=== PATIENT | female | born 1945 | race Caucasian/White ===

== ENCOUNTER 2018-04-09 12:15 | Outpatient (REF) | payer MEDICARE, OTHER, MEDICAID, SELFPAY ==
[2018-04-09 13:18] LABS: PROTEIN < 6.0 mg/dL
[2018-04-09 13:21] LABS: ALT 25 U/L (12-78); AST 14 U/L (15-37)
[2018-04-09 13:26] LABS: COMMENT (LAB VIEW ONLY) 21.86 mg/dL
== END 2018-04-09 12:35 ==
LOC: LBN 12:15
PROVIDERS: PCP Nurse Practitioner Family; Visit Provider Nurse Practitioner Family
DX: I10 Essential (primary) hypertension (principal)
CPT/HCPCS: 82043; 82565; 82570; 84156; 84450; 84460

== ENCOUNTER 2018-05-10 00:33 | Outpatient (CLI) | payer MEDICARE, OTHER, MEDICAID, SELFPAY ==
--- NOTE | 2018-05-10 12:45 | DI.MAMMO_ITS ---
SYMPTOM/DIAGNOSIS: SCREENING, Z00.00 MAMMOGRAM: 05/10 Mammograms were interpreted according to the usual protocol including computer analysis with CAD system, tomosynthesis and C view imaging. The breasts are heterogeneously dense. No dominant mass or clumped microcalcification is identified in either breast. The current examination is compared with previous examinations including March 2017 and there has been no gross interval change in appearance in comparison with the previous studies. CONCLUSION: No specific evidence of malignancy at this time. Routine screening examinations are suggested at yearly intervals due to the family history of breast carcinoma. Category 1, breast density Category C. MQSA ASSESSMENT OF FINDINGS: Negative. Category 1. Patient will receive a letter notifying them of these results. Bi-RADS category C. The breasts are heterogeneously dense, which may obscure small masses.
== END 2018-05-10 00:53 ==
PROVIDERS: PCP Nurse Practitioner Family; Visit Provider Nurse Practitioner Family
DX: Z12.31 Encounter for screening mammogram for malignant neoplasm of breast (principal); Z80.3 Family history of malignant neoplasm of breast
CPT/HCPCS: 77063; 77067

== ENCOUNTER 2018-10-18 08:56 | Outpatient (CLI) | payer MEDICARE, OTHER, SELFPAY ==
[2018-10-18 09:38] LABS: Abs Immature Grans 0.02 k/cumm (0.0-0.09); Absolute Basophil Count 0.04 k/cumm (0.0-0.2); Absolute Eosinophil Count 0.32 k/cumm (0.0-0.7); Absolute Lymphocyte Count 2.61 k/cumm (1.2-3.4); Absolute Monocyte Count 0.92 k/cumm (0.11-0.7); Absolute Neutrophil Count 5.27 k/cumm (1.2-6.7); Basophils % 0.4; Eosinophils % 3.5; HCT 43.8 % (36.0-46.0); HGB 14.3 g/dL (12.0-15.5); Immature Grans % 0.2; Lymphocytes % 28.4; Mean Corp. HGB Concentration 32.6 g/dL (32.0-36.0); Neutrophils % 57.5; Platelet Count 197 x1000/uL (130-400); RBC 4.76 m/cumm (4.00-5.20); RBC Distribution Width 14.1 % (11.7-14.6); White Blood Cell Count 9.18 k/cumm (4.4-10.8)
[2018-10-18 10:25] LABS: ALT 33 U/L (12-78); AST 20 U/L (15-37); Albumin 3.9 g/dL (3.4-5.0); Alkaline Phosphatase 92 U/L (46-116); Anion Gap 7.7 mmol/L (3-11); BUN 15 mg/dL (7-18); Bilirubin, Total 0.3 mg/dL (0.2-1.0); CO2 29.3 mmol/L (21.0-32.0); Calcium 9.4 mg/dL (8.5-10.1); Chloride 104 mmol/L (98-107); Glucose 95 mg/dL (70-100); Potassium 4.3 mmol/L (3.5-5.1); Sodium 141 mmol/L (136-145); TSH (W/Ref FT4) 2.98 uIU/mL (0.358-3.74); Total Protein 6.8 g/dL (6.4-8.2)
== END 2018-10-18 09:16 ==
PROVIDERS: PCP Nurse Practitioner Family; Visit Provider Nurse Practitioner Family
DX: R06.09 Other forms of dyspnea (principal); I10 Essential (primary) hypertension; Z72.0 Tobacco use
CPT/HCPCS: 36415; 80053; 71046; 84443; 85025

== ENCOUNTER 2018-10-18 10:37 | Outpatient (CLI) | payer MEDICARE, OTHER, SELFPAY ==
--- NOTE | 2018-10-18 09:28 | DI.RAD_ITS ---
SYMPTOM/DIAGNOSIS: EXERTIONAL SOB, R06.09, Z72.0 PA AND LATERAL CHEST: Comparison is made with 05/22/10. Heart size and pulmonary vasculature are stable and within normal limits. The lungs are clear. No effusions or pneumothoraces are identified. Mild degenerative changes are seen in the spine. IMPRESSION: No acute pulmonary process.
== END 2018-10-18 10:57 ==
PROVIDERS: PCP Nurse Practitioner Family; Visit Provider Nurse Practitioner Family
DX: R06.02 Shortness of breath (principal); Z72.0 Tobacco use
CPT/HCPCS: 71046

== ENCOUNTER 2018-10-26 12:28 | Outpatient (CLI) | payer MEDICARE, OTHER, MEDICAID, SELFPAY | END 2018-10-26 12:48 | PROVIDERS: PCP Nurse Practitioner Family; Visit Provider Nurse Practitioner Family | DX: R06.09 Other forms of dyspnea (principal) | CPT/HCPCS: 36415; 84132 ==

== ENCOUNTER 2019-03-02 01:20 | Outpatient (CLI) | payer MEDICARE, OTHER, SELFPAY ==
[2019-03-02] MEDS: Inhaler, Assist Device 1 EACH MC (10:46)
[2019-03-02] MEDS: Albuterol HFA 18 GM 200 PUFF INH IH (10:46)
--- NOTE | 2019-03-04 10:35 | PFT_ITS ---
DATE OF SERVICE: March 02, 2019 REQUESTING PROVIDER: Spencer Tenorio DNP, [facility] Spirometry shows borderline mild obstructive airways disease, no bronchodilator response. Lung volumes show no evidence of restriction. Diffusion capacity normal. Airways resistance elevated. IMPRESSION: Borderline mild obstructive airways disease with no significant bronchodilator response. This is associated with elevated airways resistance. Clinical correlation recommended. SHAHZAD/jolene D/
== END 2019-03-02 01:40 ==
PROVIDERS: PCP Nurse Practitioner Family; Visit Provider Nurse Practitioner Family
DX: R06.00 Dyspnea, unspecified (principal); R05 Cough; R06.2 Wheezing; F17.210 Nicotine dependence, cigarettes, uncomplicated
CPT/HCPCS: 94060; 94150; 94726; 94729

== ENCOUNTER 2019-11-18 12:04 | Outpatient (REF) | payer MEDICARE, OTHER, MEDICAID, SELFPAY ==
[2019-11-18 14:30] LABS: HCT 40.4 % (36.0-46.0); HGB 13.2 g/dL (12.0-15.5); Mean Corp. HGB Concentration 32.7 g/dL (32.0-36.0); Mean Corpuscular Hemoglobin 30.5 pg (27.0-33.0); Mean Corpuscular Volume 93.3 fL (80-95); Mean Platelet Volume 12.9 fL (8.0-11.0); Platelet Count 197 x1000/uL (130-400); RBC 4.33 m/cumm (4.00-5.20); RBC Distribution Width 13.9 % (11.7-14.6); White Blood Cell Count 7.33 k/cumm (4.4-10.8)
[2019-11-18 14:48] LABS: ALT 38 U/L (14-59); AST 23 U/L (15-37); Alkaline Phosphatase 85 U/L (46-116); Anion Gap 6.9 mmol/L (3-11); BUN 11 mg/dL (7-18); Bilirubin, Total 0.5 mg/dL (0.2-1.0); CO2 28.1 mmol/L (21.0-32.0); CREATININE 0.71 mg/dL (0.55-1.02); Calcium 9.4 mg/dL (8.5-10.1); Chloride 104 mmol/L (98-107); Glucose 119 mg/dL (74-106); Potassium 3.8 mmol/L (3.5-5.1); Sodium 139 mmol/L (136-145); TSH (W/Ref FT4) 35.36 uIU/mL (0.36-3.74); Total Protein 6.9 g/dL (6.4-8.2)
[2019-11-18 15:01] LABS: COMMENT (LAB VIEW ONLY) 20.22 mg/dL; Microalb ug/mg Crea 22.7 ug/mg Cr
[2019-11-18 15:05] LABS: FREE T4 0.53 ng/dL (0.76-1.46)
== END 2019-11-18 12:24 ==
LOC: NCHCN 12:04
PROVIDERS: PCP Nurse Practitioner Family; Visit Provider Nurse Practitioner Family
DX: I10 Essential (primary) hypertension (principal); E78.5 Hyperlipidemia, unspecified
CPT/HCPCS: 80053; 85027; 82043; 82570; 84439; 84443

== ENCOUNTER 2019-12-30 07:36 | Outpatient (REF) | payer MEDICARE, OTHER, MEDICAID, SELFPAY ==
[2019-12-30 18:39] LABS: TSH (W/Ref FT4) 31.69 uIU/mL (0.36-3.74)
[2019-12-30 19:07] LABS: FREE T4 1.04 ng/dL (0.76-1.46)
== END 2019-12-30 07:56 ==
LOC: NCHCN 07:36
PROVIDERS: PCP Nurse Practitioner Family; Visit Provider Nurse Practitioner Family
DX: E03.9 Hypothyroidism, unspecified (principal)
CPT/HCPCS: 84439; 84443

== ENCOUNTER 2020-01-30 20:27 | Outpatient (REF) | payer MEDICARE, OTHER, MEDICAID, SELFPAY ==
[2020-01-30 22:01] LABS: TSH (W/Ref FT4) 1.14 uIU/mL (0.36-3.74)
== END 2020-01-30 20:47 ==
LOC: NCHCN 20:27
PROVIDERS: PCP Nurse Practitioner Family; Visit Provider Nurse Practitioner Family
DX: E03.9 Hypothyroidism, unspecified (principal)
CPT/HCPCS: 84443

== ENCOUNTER 2020-03-20 01:19 | Outpatient (CLI) | payer MEDICARE, OTHER, SELFPAY ==
--- NOTE | 2020-03-20 10:43 | DI.MAMMO_ITS ---
EXAM: MAMMO SCREENING CLINICAL HISTORY: SCREENING, Z12.39 TECHNIQUE: Mammograms were interpreted according to the usual protocol including computer analysis w [employer] CAD system, tomosynthesis and C-view imaging. COMPARISON: 2017 FINDINGS: The breasts are composed of heterogeneously dense fibroglandular densities, Breast Density category C . No suspicious masses or suspicious microcalcifications are seen. No skin thickening or abnormal axillary lymph nodes are seen. There has been no significant change from prior exams. IMPRESSION: BI-RADS Category 1 - Negative Yearly screening mammography is recommended. Breast Density - Category C - Heterogeneously dense The mammogram demonstrates the patient's breast tissue is dense. Dense breast tissue is very common a nd is not abnormal but dense breast tissue can make it harder to find cancer on a mammogram. Also, de nse breast tissue may increase breast cancer risk. This information about the result of the mammogram report was provided to the patient to raise their awareness. Use this report when you speak with the patient about their risks for breast cancer, which includes their family history. At that time, you may recommend additional screening tests (Ultrasound or MRI) as they might be useful based on their r isk. A negative radiographic report should not delay biopsy if a dominant or clinically suspicious mass is present. Up to ten percent of cancers are not identified on mammography. A negative report may reinforce clinical impression. Adenosis and dense breasts may obscure an underlying neoplasm. False positive reports average 6 to 10%.
== END 2020-03-20 01:39 ==
PROVIDERS: PCP Nurse Practitioner Family; Visit Provider Nurse Practitioner Family
DX: Z12.31 Encounter for screening mammogram for malignant neoplasm of breast (principal); R92.2 Inconclusive mammogram
CPT/HCPCS: 77063; 77067

== ENCOUNTER 2020-07-03 10:39 | Outpatient (REF) | payer MEDICARE, OTHER, SELFPAY ==
[2020-07-03 14:15] LABS: TSH 0.48 uIU/mL (0.36-3.74)
== END 2020-07-03 10:59 ==
LOC: NCHCN 10:39
PROVIDERS: PCP Nurse Practitioner Family; Visit Provider Nurse Practitioner Family
DX: E03.9 Hypothyroidism, unspecified (principal)
CPT/HCPCS: 84443

== ENCOUNTER 2020-12-17 08:36 | Outpatient (REF) | payer MEDICARE, OTHER, SELFPAY ==
[2020-12-17 21:48] LABS: BUN 10 mg/dL (7-18); CREATININE 0.5 mg/dL (0.55-1.02); Chloride 109 mmol/L (98-107); Glucose 89 mg/dL (74-106); NT-proBNP 288 pg/mL (<300); Potassium 3.9 mmol/L (3.5-5.1); Sodium 145 mmol/L (136-145); TSH (W/Ref FT4) 0.21 uIU/mL (0.36-3.74)
[2020-12-17 22:15] LABS: FREE T4 1.73 ng/dL (0.76-1.46)
== END 2020-12-17 08:37 | disposition home or self-care (01) ==
LOC: NCHCN 08:36
PROVIDERS: PCP Nurse Practitioner Family; Visit Provider Family Medicine
DX: E03.9 Hypothyroidism, unspecified (principal); R06.02 Shortness of breath; R60.0 Localized edema
CPT/HCPCS: 80048; 83880; 84439; 84443

== ENCOUNTER 2021-05-17 14:56 | Outpatient (REF) | payer MEDICARE, OTHER, SELFPAY ==
[2021-05-17 17:23] LABS: ALT 32 U/L (14-59); AST 17 U/L (15-37); Albumin 3.6 g/dL (3.4-5.0); Alkaline Phosphatase 107 U/L (46-116); Anion Gap 7.6 mmol/L (3-11); BUN 15 mg/dL (7-18); Bilirubin, Total 0.6 mg/dL (0.2-1.0); CO2 30.4 mmol/L (21.0-32.0); CREATININE 0.6 mg/dL (0.55-1.02); Calcium 8.7 mg/dL (8.5-10.1); Calculated LDL 89 mg/dL (<100); Chloride 105 mmol/L (98-107); Cholesterol 165 mg/dL (<200); Glucose 72 mg/dL (74-106); HDL Cholesterol 52 mg/dL (40-60); Sodium 143 mmol/L (136-145); Total Protein 6.4 g/dL (6.4-8.2); Triglyceride 124 mg/dL (<150)
== END 2021-05-17 14:57 | disposition home or self-care (01) ==
LOC: NCHCN 14:56
PROVIDERS: PCP Nurse Practitioner Family; Visit Provider Physician Assistant
DX: E03.9 Hypothyroidism, unspecified (principal); I10 Essential (primary) hypertension; E78.5 Hyperlipidemia, unspecified
CPT/HCPCS: 80053; 80061; 84443

== ENCOUNTER 2021-08-22 02:21 | Outpatient (CLI) | payer MEDICARE, OTHER, SELFPAY ==
--- NOTE | 2021-08-22 | DI.CTLCSR_ITS ---
Exam(s) CT CHEST LUNG CANCER SCREEN EXAM: CT CHEST LUNG CANCER SCREEN CLINICAL HISTORY: SCREENING FOR LUNG CANCER, FORMER SMOKER Z87.891 TECHNIQUE: Imaging Protocol: Axial computed tomography images with coronal and sagittal reformatted images were created and reviewed COMPARISON: CT ABD PELVIS WITH CONTRAST from 02/25/2012 CR XR CHEST 2V PA LATERAL from 10/18/2018 FINDINGS: Tracheobronchial tree: Patent where visualized. Mediastinum and Tammy: No dominant adenopathy or fluid collection. Pulmonary parenchyma: No consolidation or dominant measurable mass. Mild upper lobe emphysematous tessie nges. Lung Nodules: None. Pleura: No effusion or pneumothorax. Heart: The heart is not dilated. Moderate to severe coronary artery calcifications are seen. Aorta: Atherosclerotic changes. Ascending aorta 3.2 cm. Descending aorta 3 point 7 cm.. Upper abdomen: Cholelithiasis. Bones: Mild degenerative changes. Soft Tissues: Unremarkable. IMPRESSION: No evidence of pulmonary nodules. Mild emphysematous changes. Ectatic aorta. Lung RADS Cat 1 - Negative: No nodules and definitely benign nodules Lung-RADS 1.0 CATEGORIES: Category 0 - Prior chest CT exam(s) being located for comparison. Category 1 - Annual screening in 12 months. No nodules or definitely benign nodules. Category 2 - Annual screening in 12 months. Benign appearance. Nodules with low likelihood of becomin g active cancer. Category 3 - 6-month follow-up. Probably benign. Short-term follow-up suggested. Nodules with low lik elihood of becoming active cancer. Category 4A - 3-month follow-up and CT/PET if >8 mm in size. Suspicious finding. Findings which requi re additional testing. Category 4B - Findings which require additional testing and tissue sampling. Category 4X - Category 3 or 4 nodules with additional features or imaging findings that increases the suspicion of malignancy. Modifier S- Potentially clinically significant findings (non lung cancer) RADIATION DOSE DELIVERED: 85.92mGy.cm Total DLP 2.21mGy CTDIvol DATA REPOSITORY: All CT scans at this facility are submitted to the National Radiology Data Registry (NRDR) Dose Index Registry (DIR) with the [employer] ([employer]). RADIATION OPTIMIZATION: All CT scans at this facility use at least one of these dose optimization te chniques: automated exposure control; mA and/or kV adjustment per patient size (includes targeted exa ms where dose is matched to clinical indication); or iterative reconstruction.
== END 2021-08-22 02:41 ==
PROVIDERS: PCP Nurse Practitioner Family; Visit Provider Physician Assistant
DX: Z87.891 Personal history of nicotine dependence (principal); Z12.2 Encounter for screening for malignant neoplasm of respiratory organs; J43.9 Emphysema, unspecified
CPT/HCPCS: 71271

== ENCOUNTER 2022-05-28 15:15 | Outpatient (REF) | payer MEDICARE, OTHER, SELFPAY ==
[2022-05-28 17:21] LABS: ALT 23 U/L (14-59); AST 18 U/L (15-37); Albumin 3.8 g/dL (3.4-5.0); Alkaline Phosphatase 119 U/L (46-116); Anion Gap 7.8 mmol/L (3-11); BUN 11 mg/dL (7-18); Bilirubin, Total 0.4 mg/dL (0.2-1.0); CO2 30.2 mmol/L (21.0-32.0); CREATININE 0.6 mg/dL (0.55-1.02); Calculated LDL 81 mg/dL (<100); Chloride 105 mmol/L (98-107); Cholesterol 163 mg/dL (<200); Estimated GFR 92.97 (mL/min/1.73m2); Glucose 86 mg/dL (74-106); HDL Cholesterol 55 mg/dL (40-60); Sodium 143 mmol/L (136-145); T4 12.6 ug/dL (4.7-13.3); TSH 1.06 uIU/mL (0.36-3.74); Total Protein 6.9 g/dL (6.4-8.2); Triglyceride 137 mg/dL (<150)
== END 2022-05-28 15:16 | disposition home or self-care (01) ==
LOC: NCHCN 15:15
PROVIDERS: Visit Provider Physician Assistant
DX: E03.9 Hypothyroidism, unspecified (principal); I10 Essential (primary) hypertension; E78.5 Hyperlipidemia, unspecified
CPT/HCPCS: 80053; 80061; 84436; 84443

== ENCOUNTER 2023-01-19 07:49 | Emergency (ER) | payer MEDICARE, SELFPAY ==
[2023-01-19] VITALS (13 sets, daily range): BP systolic 141–158; BP diastolic 75–118; PULSE 68–92; RESP 15–24; TEMP 36.7–37.1; O2SAT 94–97
--- NOTE | 2023-01-19 07:45 | DI.CT_ITS ---
Exam(s) CT HEAD WO EXAM: CT HEAD WO CLINICAL HISTORY: SCHUSTER, generalized weakness. TECHNIQUE: Imaging Protocol: Axial computed tomography images with coronal and sagittal reformatted images were created and reviewed COMPARISON: No exams were available for comparison FINDINGS: There are no skull fractures. There is no fluid in the visualized paranasal sinuses. There is no evidence of intracranial hemorrhage, mass effect, or shift of midline structures. There are no extra-axial fluid collections. The ventricles are not enlarged or shifted and there is no blo od within the ventricular system nor within the basal cisterns. There is symmetrical bilateral periventricular hypodensity consistent with chronic small vessel disea se. No obvious acute territorial infarct. IMPRESSION: No acute intracranial findings on this noninfused CT scan of the brain. Bilateral periventricular hypodensity consistent with chronic small vessel disease. RADIATION DOSE DELIVERED: 707.73mGy.cm Total DLP DATA REPOSITORY: All CT scans at this facility are submitted to the National Radiology Data Registry (NRDR) Dose Index Registry (DIR) with the [employer] (ACR). RADIATION OPTIMIZATION: All CT scans at this facility use at least one of these dose optimization te chniques: automated exposure control; mA and/or kV adjustment per patient size (includes targeted exa ms where dose is matched to clinical indication); or iterative reconstruction.
--- NOTE | 2023-01-19 07:45 | RT.EKG_ITS ---
APPROVED REPORT Exam: Resting ECG Reason for Exam: feeling weak, hypertensive Patient Location: E HR:88 bpm ECG Measurements Heart Rate 88 AXIS MS 139 P 38 QRSd 89 QRS 10 QT 341 T -20 QTc 414 Conclusion Sinus rhythm...normal P axis, V-rate 60- 99 Repol abnrm suggests ischemia, diffuse leads...ST-T neg, ant/lat/inf
--- NOTE | 2023-01-19 08:00 | ED.GENADUL_ITS ---
Discharge Plan Disposition Patient Disposition: Home Condition: Stable Discharge Details Clinical Impression: Bilateral leg weakness, Elevated liver enzymes Primary Care Provider: Hiren Bahena ED Provider: Citlalli Funes Home Meds and New Rx's Prescriptions: Continued propranolol 80 MG tablet 80 mg PO BID Patient Comments: No longer taking 01/19/23 CT loperamide 2 MG capsule 2 mg PO PRN PRN omeprazole [Prilosec] 20 MG capsule,delayed release(DR/EC) 20 mg PO DAILY multivitamin Tablet 1 tab PO DAILY atorvastatin 10 mg tablet 10 mg PO QHS Patient Comments: TAKE ONE TABLET BY MOUTH AT BEDTIME metoprolol succinate [Toprol XL] 100 mg tablet extended release 24 hr 100 mg PO DAILY Patient Comments: Take 1 tablet by mouth once a day aspirin 81 mg Tablet,Delayed Release (Dr/Ec) 81 mg PO DAILY levothyroxine 88 mcg tablet 88 mcg PO DAILY Patient Comments: Take 1 tablet by mouth once a day potassium chloride 20 mEq tablet,ER particles/crystals 20 meq PO BID Patient Comments: TAKE ONE TABLET BY MOUTH EVERY DAY valsartan 320 mg tablet 320 mg PO DAILY fluticasone propionate [Flovent HFA] 220 mcg/actuation HFA aerosol inhaler 220 mcg INHALATION BID Patient Comments: Inhale 2 puff using inhaler twice a day Rx Instructions: Inhale 2 puffs BID furosemide 20 mg tablet 20 mg PO DAILY PRN Rx Instructions: for swelling albuterol sulfate 90 mcg/actuation HFA aerosol inhaler See Rx Instructions .ROUTE .COMPLEX Patient Comments: Inhale 1-2 puff using inhaler every four to six hours as needed Rx Instructions: Inhale 1-2 puffs Q 4-6 H PRN Spiriva with HandiHaler 18 mcg capsule, w/inhalation device 18 mcg INHALATION DAILY Rx Instructions: Inhale 2 puffs once daily mirtazapine 7.5 mg tablet 7.5 mg PO QHS Patient Comments: Take 1 tablet by mouth at bedtime magnesium Tablet 1 tab PO DAILY meclizine 12.5 mg tablet 12.5 mg PO TID PRN Patient Comments: Take 1 tablet by mouth three times a day as needed Rx Instructions: for itching No Action fexofenadine-pseudoephedrine 180-240 mg tablet extended release 24 hr 1 tab PO QAM Discharge Instructions Instructions: Weakness (ED) Additional Instructions: As we discussed, your liver enzymes are slightly elevated and you do have some outstanding pending test for this. Your labs otherwise are reassuring. Your urinalysis is still pending and as we discussed, your urinary tract infection can cause the symptoms so we will call you with the results. Encourage you to stop smoking. Encourage hydration. I have left a message with your primary care and I would like for you to follow-up with them in the next 1 to 2 weeks for reevaluation. If you develop fever/chills, increased weakness, increased pain or other new/worsening symptoms to seek care urgently once again. MRI did not show signficant stroke. Referral to physical therapy is attached. Stand Alone Forms: Physical Therapy Referral Referrals: Hiren Bahena [Primary Care Provider] - Discharge Data Discharge Date/Time-TO BE ENTERED AT DEPARTURE: 01/19/23 13:01 Medical Decision Making Patient is a pleasant 77-year-old female with past medical history significant for GERD, hypertension, depression,Presents today with chief complaint of possible stroke. She reports that since last night she has been feeling weak and has had tingling in her bilateral hands. The weakness has been equal in bilateral lower extremities. States that she has not had a headache for the p ast 3 weeks and has been feeling progressively worse over the same timeline but notably more weak and having the tingling starting yesterday. She has [place] with physical therapy for intermittent BPPV which she states has been well controlled with the physical therapy. No exacerbating factors associated with the headache. States that she can feel nauseated has not had any vomiting. No abdominal pain. Denies any chest pain. States that she has chronic shortness of breath which she associates with chronic smoking but no acute change in this. States that she has been hypertensive at home and has been monitoring this unclear if this is significantly elevated from her baseline. On exam, patient appears anxious and fatigued but nontoxic. Lungs are clear, normal cardiac exam. No lower extremity edema. No focal weakness associated with fast exam. Speech is clear, no interruption in mentation. Strength is equal in bilateral upper and lower extremities. Patient is generally weak but nothing focal to suggest an acute CVA. She not having any dizziness or issues with balance. Patient is not tachycardic, febrile. Patient's primary concern had been for stroke because of elevated blood pressure readings at home. Her blood pressure is 158/83, the diastolics seem to be more concerning for the patient on this number. Will educated further on blood pressure readings. I advised that at this time, her history and exam is not consistent with an acute CVA as her generalized weakness is very distributed and does not have any unilateral components. Considered potential ACS although the patient is not as having any chest pain. Certainly at risk with smoking and weight as well as age. Will obtain EKG. Also considered thyroid dysfunction. Concerned about the headache that she has had for the past several weeks and will obtain a Noncon CT. Did not see evidence to suggest dissection, acute PE. FINDINGS: There are no skull fractures. There is no fluid in the visualized paranasal sinuses. There is no evidence of intracranial hemorrhage, mass effect, or shift of midline structures.? There are no extra-axial fluid collections.? The ventricles are not enlarged or shifted and there is no blood within the ventricular system nor within the basal cisterns. There is symmetrical bilateral periventricular hypodensity consistent with chronic small vessel disease.? No obvious acute territorial infarct. IMPRESSION: No acute intracranial findings on this noninfused CT scan of the brain. Bilateral periventricular hypodensity consistent with chronic small vessel dis ease. FINDINGS: Lead overlies the left lower lung field.? The lungs are not well inflated on the lateral view. HEART: Normal size.? Aorta: Not dilated.? Tortuous. PULMONARY VASCULATURE: Normal. LUNGS: Grossly clear.? ? Fibrotic changes. PLEURAL SPACE: No pleural effusion or pneumothorax. BONE:Unremarkable for age.? IMPRESSION: No acute abnormality.? Labs reviewed. No leukocytosis. Stable H&H. CMP concerning for minimally low potassium of 3.4. Her mag is slightly low at 1.7. AST, ALT and alk phos are all slightly elevated from above her baseline. She denies any tick exposure. States that she does not get out much and does not have any pads. Will obtain hepatitis panel although my concern for this is fairly low. Troponin within normal limits. Given length of time she is having symptoms, I do not feel that repeat is necessary at this time. TSH within normal limits. Patient has been taking her levothyroxine. She not had any recent illness. I did consider something like Guillain-Tabares? to be the source of her bilateral lower extremity weakness with find this unlikely. We did ambulate the patient she does fairly well ambulating but her Romberg is positive, she feels slightly vertiginous with this but states not as severe as she has had in the past when her eyes were open. Sara has not had any vertigo since treatment with PT 12/22/22. Considered posterior stroke, will obtain CTA. As symptoms have been ongoing for about 3 weeks, she is out of the window for any thrombolysis. MRI available, natan trotter be much more diagnostic and will move forward, patient agrees to this. Has not had issue with MRI in the past. contacted by radiologist. He notes small vessel disease, chronic in nature, but no acute CVA or other emergent pathology. Discussed with patient. At this time, I do not see emergent pathology. We discussed the small vessel disease. We discussed that she is very sedentary at home and this may be contributing to her weakness. . Discussed PT, she has had good success with this historically. Will send referal. Encouraged close f/u with PCP, called to set up appointment. Encouraged more frequent mobility rather than infrequent, larger amounts. Encouraged hydration, smoking cessation. Hepatitis labs pending. We discussed inpatient vs. outpatient treatment and she feels safe at [facility] with family help, would lik eto go home with hisband. Strict return precautions discussed. All of her questions and concerns were addressed, she is in agreement with natan stubbs. Patient able to ambulate well. Called with UA results, no infection noted. PCP office called back, they have times tomorrow or Wedneday, will call patient with time availability. HPI General Date/Time Provider Initiated Documentation: 01/19/23 07:52 . Limitations to Documentation: no limitations . Information obtained by: patient, family and RN notes reviewed . History of Present Illness 77 year old F presents to the emergency department with the chief complaint of concern for CVA with BLE weakness and elevated BP, described as mild (no pain with this, ambulating unassisted), and is localized to the head, left, right, upper extremity and lower extremity. Patient started experiencing this day(s) and it has been constant. No relieving factors improve symptom(s), No exacerbating factors reported . Patient notes headaches and weakness; denies confusion, chest pain, cough, fever/chills, loss of appetite, nausea/vomiting, rash and shortness of breath. Patient did receive the following treatments prior to arrival, none Related Data Home Medications Medication Instructions Recorded Confirmed loperamide 2 mg capsule 2 mg PO PRN PRN 05/16/15 01/19/23 omeprazole 20 mg capsule,delayed 20 mg PO DAILY 05/16/15 01/19/23 release (Prilosec) propranolol 80 mg tablet 80 mg PO BID 05/16/15 01/19/23 albuterol sulfate 90 mcg/actuation See Rx Instructions .Route .COMPLEX 01/19/23 01/19/23 aerosol inhaler aspirin 81 mg tablet,delayed 81 mg PO DAILY 01/19/23 01/19/23 release atorvastatin 10 mg tablet 10 mg PO QHS 01/19/23 01/19/23 fluticasone propionate 220 220 mcg inhalation BID 01/19/23 01/19/23 mcg/actuation HFA aerosol inhaler (Flovent HFA) furosemide 20 mg tablet 20 mg PO DAILY PRN 01/19/23 01/19/23 levothyroxine 88 mcg tablet 88 mcg PO DAILY 01/19/23 01/19/23 magnesium 1 tab PO DAILY 01/19/23 01/19/23 meclizine 12.5 mg tablet 12.5 mg PO TID PRN 01/19/23 01/19/23 metoprolol succinate 100 mg 100 mg PO DAILY 01/19/23 01/19/23 tablet,extended release 24 hr (Toprol XL) mirtazapine 7.5 mg tablet 7.5 mg PO QHS 01/19/23 01/19/23 multivitamin 1 tab PO DAILY 01/19/23 01/19/23 potassium chloride 20 mEq 20 meq PO BID 01/19/23 01/19/23 tablet,extended release(part/cryst) tiotropium bromide 18 mcg capsule 18 mcg inhalation DAILY 01/19/23 01/19/23 with inhalation device (Spiriva with HandiHaler) valsartan 320 mg tablet 320 mg PO DAILY 01/19/23 01/19/23 fexofenadine-pseudoephedrine ER 1 tab PO QAM 01/27/23 180 mg-240 mg tablet,ext.release 24 hr Allergies Allergy/AdvReac Type Severity Reaction Status Date / Time bupropion Allergy Mild Hives Unverified 01/19/23 09:51 escitalopram Allergy Mild Itching Unverified 01/19/23 09:51 Penicillins AdvReac Intermediate Skin Rash Unverified 01/19/23 08:05 Sulfa (Sulfonamide AdvReac Intermediate thrush Unverified 01/19/23 08:05 Antibiotics) lisinopril AdvReac Unknown Unverified 01/19/23 09:51 General Stated Complaint: CVA/TIA AUTUMN: 2 Review of Systems Constitutional Constitutional: Reports as per HPI, Denies chills, Denies fever(s), Denies frequent falls and Reports headache(s) Eyes Eyes: Reports as per HPI and Denies change in vision ENT Ears, Nose, Mouth, and Throat: Denies vertigo, Reports headache(s) and Denies neck pain Cardiovascular Cardiovascular: Reports as per HPI, Denies chest pain, Denies lightheadedness, Denies dyspnea and Denies dyspnea on exertion Respiratory Respiratory: Reports as per HPI, Denies cough, Denies dyspnea and Denies dyspnea on exertion Gastrointestinal Gastrointestinal: Reports as per HPI, Denies abdominal pain, Denies change in bowel habits, Denies nausea and Denies vomiting Musculoskeletal Musculoskeletal: Reports as per HPI, Denies back pain, Denies myalgias, Denies neck pain and Denies numbness Integumentary/Breasts Skin/Breast: Reports as per HPI and Denies rash Neurologic Neurologic: Reports as per HPI, Denies abnormal speech, Denies confusion, Denies vertigo, Denies frequent falls, Reports headache(s), Denies localized weakness, Denies numbness and Denies sensory deficit Psychiatric Psychiatric: Denies confusion PFSH All Active Problems (Updated 01/27/23 @ 12:33 by Ana Ayala) Bilateral leg weakness (Acute) Elevated liver enzymes (Acute) Medical History (Updated 01/27/23 @ 12:33 by Ana Ayala) Allergic rhinitis Anxiety Asymptomatic postmenopausal status BMI 38.0-38.9,adult Cholelithiasis COPD (chronic obstructive pulmonary disease) Diverticulosis of colon Family hx of colon cancer Headache Heartburn History of IBS History of neck pain Hyperlipidemia Hypertension Hypothyroidism Insomnia Leg weakness Lower leg edema Major depression in remission Pancreatic mass Postnasal drip Smoker Vertigo Social History Smoking/Tobacco Use Status: Current every day Tobacco Type: cigarettes Smoking risk assessment performed?: Yes Alcohol Intake: former Drug use: Never Substance use type: does not use Housing: house Do you feel safe at home: Yes Do you feel safe in your relationship?: Yes Exam Const General: cooperative, healthy appearing, comfortable, no acute distress, well developed, well groomed and anxious Nutritional Appearance: well nourished and overweight Orientation: alert, awake and oriented x3 [facility] Head: normal to inspection, no palpable skull fracture, normocephalic and atraumatic Ears: hearing grossly normal bilaterally, external ears normal and TM's normal bilaterally General nose exam: external nose normal Mouth: oral mucosae normal and moist mucous membranes Throat: posterior oropharynx normal Eyes General: appearance normal, both eyes and all related structures Alignment and Position: alignment normal Periorbital: periorbital findings normal Eyelids: eyelids normal Sclera: sclerae normal Cornea: corneas normal Pupils: PERRL EOM: EOM intact bilaterally Neck Neck: normal visual inspection, full ROM, no lymphadenopathy and no meningeal signs Resp Effort & Inspection: normal respiratory effort, able to speak in complete sentences and no respiratory distress Auscultation: clear to auscultation bilaterally, no rales, no rhonchi and no wheezes Cardio Rate: regular rate Rhythm: regular rhythm Heart Sounds: S1 normal and S2 normal Back/Spine/Pelvis Cervical Spine: normal cervical lordosis and cervical ROM normal Skin General skin exam: no rashes or lesions noted Neuro General: patient alert, patient awake and patient oriented x3 Cranial Nerves: CN's II-XI intact bilaterally Cognition: normal cognition Speech: speech normal Gait: normal gait Motor: muscle tone normal throughout, strength 5/5 throughout (No significant deficits, may be slightly weak but not notably so, equal geni), no pronator drift, no movement abnormalities noted, no fasciculations and no tremors Sensory Exam: no sensory deficits noted Coordination: [id number] test normal and [id number] test normal Extrem General: normal to inspection, capillary refill normal, no pedal edema and no calf tenderness Course Vital Signs Vital signs: Vital Signs Temperature 37.1 C 01/19/23 07:54 Pulse 88 01/19/23 07:54 Respiratory Rate 19 01/19/23 07:54 Blood Pressure 158/83 H 01/19/23 07:54 Pulse Oximetry 94 01/19/23 07:54 Temperature 37.1 C 01/19/23 07:54 Temperature Source Oral 01/19/23 07:54 Pulse 88 01/19/23 07:54 Respiratory Rate 19 01/19/23 07:54 Blood Pressure 158/83 H 01/19/23 07:54 Blood Pressure Position Supine 01/19/23 07:54 Pulse Oximetry 94 01/19/23 07:54 Oxygen Delivery Method Room Air 01/19/23 07:54 Oxygen Flow Rate 0 01/19/23 07:54 Pain Level 0 01/19/23 07:54
[2023-01-19 08:25] LABS: Abs Immature Grans 0.05 10^3/uL (0.0-0.06); Absolute Basophil Count 0.02 10^3/uL (0.0-0.2); Absolute Lymphocyte Count 0.52 10^3/uL (1.2-3.4); Absolute Monocyte Count 0.31 10^3/uL (0.1-0.8); Absolute Neutrophil Count 6.91 10^3/uL (1.2-6.7); Basophils % 0.3; HCT 42.9 % (36.0-46.0); HGB 14.5 g/dL (11.2-15.7); Immature Grans % 0.6; Lymphocytes % 6.7; MCH 29.5 pg (27.0-33.0); MCHC 33.8 % (32.0-36.0); MCV 87 fL (80-95); MPV 11.7 fL (8.0-11.0); Neutrophils % 88.4; Platelet Count 135 10^3/uL (130-400); RBC 4.92 10^6/uL (3.93-5.22); RDW 13.9 % (11.7-14.6); RDW-SD 44.9 fL; WBC 7.81 10^3/uL (4.4-10.8)
[2023-01-19 08:48] LABS: ALT 66 U/L (14-59); AST 62 U/L (15-37); Albumin 3.6 g/dL (3.4-5.0); Alkaline Phosphatase 122 U/L (46-116); Anion Gap 10.7 mmol/L (3-11); BUN 8 mg/dL (7-18); Bilirubin, Total 0.6 mg/dL (0.2-1.0); CO2 27.3 mmol/L (21.0-32.0); CREATININE 0.7 mg/dL (0.55-1.02); Calcium 8.8 mg/dL (8.5-10.1); Chloride 99 mmol/L (98-107); Estimated GFR 89.02 (mL/min/1.73m2); Glucose 126 mg/dL (74-106); Magnesium 1.7 mg/dL (1.8-2.4); Potassium 3.4 mmol/L (3.5-5.1); Sodium 137 mmol/L (136-145); TSH (W/Ref FT4) 0.95 uIU/mL (0.36-3.74); Total Protein 7.2 g/dL (6.4-8.2); Troponin I < 50 ng/L (<or=60)
--- NOTE | 2023-01-19 08:55 | DI.RAD_ITS ---
Exam(s) XR CHEST 2V PA LATERAL EXAM: XR CHEST 2V PA LATERAL CLINICAL HISTORY: weakness TECHNIQUE: 2D digital imaging was performed. COMPARISON: CR XR CHEST 2V PA LATERAL from 10/18/2018 FINDINGS: Lead overlies the left lower lung field. The lungs are not well inflated on the lateral view. HEART: Normal size. Aorta: Not dilated. Tortuous. PULMONARY VASCULATURE: Normal. LUNGS: Grossly clear. Fibrotic changes. PLEURAL SPACE: No pleural effusion or pneumothorax. BONE:Unremarkable for age. IMPRESSION: No acute abnormality. DATA REPOSITORY: RADIATION DOSE DELIVERED:
[2023-01-19] MEDS: Normal Saline - Diluent 50 ML VIAL IJ (10:10)
[2023-01-19] MEDS: Omnipaque 350 MG/ML 500 ML BTL-Imaging package IJ (10:11)
[2023-01-19 11:30] LABS: Troponin I < 50 ng/L (<or=60)
--- NOTE | 2023-01-19 11:30 | DI.MRI_ITS ---
Exam(s) MR BRAIN WO EXAM: MR BRAIN WO CLINICAL HISTORY: possible posterior stroke, balance issues, SCHUSTER TECHNIQUE: Multiplanar multisequence MRI of the brain was performed. COMPARISON: CT CT HEAD WO from 01/19/2023 FINDINGS: CEREBRAL PARENCHYMA: There is no evidence of intracranial hemorrhage, mass effect, or shift of midline structures. There are no extra-axial fluid collections. Ventricles are not enlarged or shifted. There is no significant focal signal abnormality in the cerebellar hemispheres nor within the reggie, m idbrain, and thalami. There is, however, abundant bilateral periventricular signal abnormality consistent with chronic smal l vessel disease. There is no hemorrhage at these levels nor surrounding edema no restricted diffusi on evident on DWI. No microhemorrhages on SWI. PITUITARY GLAND: No mass nor parasellar abnormality. No obvious abnormality in the cavernous sinuses. FLOW VOIDS: Left vertebral artery is dominant. No obvious aneurysms. PARANASAL SINUSES: The visualized paranasal sinuses appear unremarkable. No obvious finding ORBITS: No obvious findings. IMPRESSION: No significant acute intracranial findings on this noninfused MRI scan of the brain. No areas of res tricted diffusion Abundant bilateral periventricular signal abnormality consistent with chronic small vessel disease ch sirena. My by myself to ER provider DATA REPOSITORY:
[2023-01-19 13:03] LABS: Bilirubin Negative (Negative); Blood Small (Negative); Clarity Clear (Clear); Glucose Negative (Negative); Ketones 40 mg/dL (Negative); Leukocyte Esterase Negative (Negative); Nitrite Negative (Negative)
[2023-01-19 13:26] LABS: Bacteria Rare HPF (Negative); C & S Indicated? No; Casts Negative LPF (Negative); Crystals Negative HPF (Negative); Epithelial Cells Few HPF (Negative); Mucus Trace (Negative); WBC 0-2 HPF (0-5)
[2023-01-20 10:55] LABS: Hepatitis A Antibody IgM Negative (Negative); Hepatitis B Core Antibody Negative (Negative); Hepatitis B surface Ag Negative (Negative); Hepatitis C Ab w Rflx HCV PCR Negative (Negative)
== END 2023-01-19 13:01 | disposition home or self-care (01) ==
PROVIDERS: Emergency Provider Physician Assistant; PCP Physician Assistant
DX: R20.2 Paresthesia of skin (principal); R53.1 Weakness; I10 Essential (primary) hypertension; R79.89 Other specified abnormal findings of blood chemistry; R06.02 Shortness of breath; F17.210 Nicotine dependence, cigarettes, uncomplicated; Z79.82 Long term (current) use of aspirin
CPT/HCPCS: 36415; 80053; 82962; 86704; 86709; 86803; 87340; 93005; 99285; 70450; 70551; 71046; 81003; 81015; 83735; 84443; 84484; 85025; 93010; 99284

== ENCOUNTER 2023-01-21 12:29 | Outpatient (REF) | payer MEDICARE, SELFPAY ==
[2023-01-21 15:19] LABS: ALT 102 U/L (14-59); AST 94 U/L (15-37); Albumin 3.5 g/dL (3.4-5.0); Alkaline Phosphatase 213 U/L (46-116); Bilirubin, Direct 0.5 mg/dL (0.0-0.2); Total Protein 6.6 g/dL (6.4-8.2)
[2023-01-22 12:42] LABS: Lyme Ab w Rflx to Lyme Confirm Negative (Negative)
[2023-01-24 12:39] LABS: Anaplasma phagocytophilum Negative (Negative); B. miyamotoi PCR Negative (Negative); Babesia divergens/MO-1 Negative (Negative); Babesia duncani Negative (Negative); Babesia microti Negative (Negative); Ehrlichia chaffeensis Negative (Negative); Ehrlichia ewingii/canis Negative (Negative); Ehrlichia muris eauclairensis Negative (Negative)
== END 2023-01-21 12:30 | disposition home or self-care (01) ==
LOC: NCHCN 12:29
PROVIDERS: PCP Physician Assistant; Visit Provider Physician Assistant
DX: R29.898 Other symptoms and signs involving the musculoskeletal system (principal)
CPT/HCPCS: 80076; 87798; 86618

== ENCOUNTER 2023-01-22 00:24 | Outpatient (CLI) | payer MEDICARE, OTHER, SELFPAY ==
--- NOTE | 2023-01-22 | DI.CTLCSR_ITS ---
Exam(s) CT CHEST LUNG CANCER SCREEN EXAM: CT CHEST LUNG CANCER SCREEN CLINICAL HISTORY: CIGARETTE SMOKER, F17.210, SCREENING FOR LUNG CANCER. TECHNIQUE: Imaging Protocol: Low Dose Technique CONTRAST MATERIAL: None COMPARISON: CT CT CHEST LUNG CANCER SCREEN from 08/22/2021 FINDINGS: CHEST: LUNGS: There are no ominous pulmonary nodules. There are no confluent infiltrates. No pleural effusi ons. Some emphysematous changes are again noted. MEDIASTINUM: There is no obvious hilar nor mediastinal adenopathy. CARDIAC: Heart size is normal. There is very mild thickening of the anterior pericardium. The thora cic aorta is again noted be enlarged. The ascending thoracic aorta measures 3.5 cm but the diameter or of the distal aortic arch-proximal descending thoracic aorta measures 3.7 cm. OTHER: Osseous: No fractures nor osseous lesions evident. IMPRESSION: No significant lung nodules. Lung rads category 1-negative However, please note that there is enlargement of the descending thoracic aorta noted as described ab ove. Lung-RADS 1.0 CATEGORIES: Category 0 - Prior chest CT exam(s) being located for comparison. Category 1 - Annual screening in 12 months. No nodules or definitely benign nodules. Category 2 - Annual screening in 12 months. Benign appearance. Nodules with low likelihood of becomin g active cancer. Category 3 - 6-month follow-up. Probably benign. Short-term follow-up suggested. Nodules with low lik elihood of becoming active cancer. Category 4A - 3-month follow-up and CT/PET if >8 mm in size. Suspicious finding. Findings which requi re additional testing. Category 4B - Findings which require additional testing and tissue sampling. Category 4X - Category 3 or 4 nodules with additional features or imaging findings that increases the suspicion of malignancy. Modifier S- Potentially clinically significant findings (non lung cancer) RADIATION DOSE DELIVERED: 60.95mGy.cm Total DLP DATA REPOSITORY: All CT scans at this facility are submitted to the National Radiology Data Registry (NRDR) Dose Index Registry (DIR) with the [employer] ([employer]). RADIATION OPTIMIZATION: All CT scans at this facility use at least one of these dose optimization te chniques: automated exposure control; mA and/or kV adjustment per patient size (includes targeted exa ms where dose is matched to clinical indication); or iterative reconstruction.
== END 2023-01-22 00:44 ==
LOC: DI 02-20 13:33
PROVIDERS: PCP Physician Assistant; Visit Provider Physician Assistant
DX: Z12.2 Encounter for screening for malignant neoplasm of respiratory organs (principal); F17.210 Nicotine dependence, cigarettes, uncomplicated
CPT/HCPCS: 71271

== ENCOUNTER 2023-01-23 00:16 | Outpatient (CLI) | payer MEDICARE, SELFPAY ==
--- NOTE | 2023-01-23 10:54 | DI.DEXA_ITS ---
Exam(s) XR DEXA BONE DENSITY W/WO DIANA EXAM: XR DEXA BONE DENSITY W/WO DIANA CLINICAL HISTORY: ASYMPTOMATIC POSTMENOPAUSAL STATUS, Z78.0; SCREENING FOR OSTEOPOROSIS TECHNIQUE: Hologic Horizon C densitometer analysis of left hip, lumbar spine and left forearm. Lat eral survey image of the thoracic and lumbar spine. COMPARISON: DX DEXA BONE DENSITY WITH DIANA from 07/14/2012 FINDINGS: Lateral view of the thoracic and lumbar spine shows no evidence of compression fractures. Bone mineral density measurements of the lumbar spine correspond to a total T-score of -1.8, in the osteopenic range. This is a 3.2 percent increase from the prior exam. Bone mineral density measurements of the left hip correspond to a total T-score of -1.3 . The femora l neck T-score is -2.0, in the osteopenic range. This represents a 7.7 percent decrease compared wi 2012.. Theleft forearm bone mineral density measurements correspond to a T-score of the distal 3rd of -1.3. This represents a 4.8 percent decrease compared with 2012. IMPRESSION: Osteopenia of the forearm, lumbar spine and left hip with mild decrease in bone density compared with 2022
== END 2023-01-23 00:36 ==
LOC: DI 00:16
PROVIDERS: PCP Physician Assistant; Visit Provider Physician Assistant
DX: Z78.0 Asymptomatic menopausal state (principal); Z13.820 Encounter for screening for osteoporosis
CPT/HCPCS: 77080

== ENCOUNTER 2023-01-28 11:55 | Outpatient (REF) | payer MEDICARE, SELFPAY ==
[2023-01-28 16:26] LABS: HCT 40.1 % (36.0-46.0); HGB 13.5 g/dL (11.2-15.7); MCH 29.5 pg (27.0-33.0); MCHC 33.7 % (32.0-36.0); MCV 88 fL (80-95); MPV 12.6 fL (8.0-11.0); Platelet Count 335 10^3/uL (130-400); RBC 4.58 10^6/uL (3.93-5.22); RDW 14.7 % (11.7-14.6); RDW-SD 47.8 fL; WBC 12.65 10^3/uL (4.4-10.8)
[2023-01-28 16:41] LABS: ALT 75 U/L (14-59); AST 47 U/L (15-37); Alkaline Phosphatase 187 U/L (46-116); Anion Gap 10.3 mmol/L (3-11); BUN 16 mg/dL (7-18); Bilirubin, Direct 0.2 mg/dL (0.0-0.2); Bilirubin, Total 0.4 mg/dL (0.2-1.0); CO2 25.7 mmol/L (21.0-32.0); CREATININE 0.8 mg/dL (0.55-1.02); Calcium 8.7 mg/dL (8.5-10.1); Chloride 107 mmol/L (98-107); Estimated GFR 75.84 (mL/min/1.73m2); Glucose 107 mg/dL (74-106); Sodium 143 mmol/L (136-145); Total Protein 6.7 g/dL (6.4-8.2)
[2023-01-29 10:50] LABS: Hepatitis A Antibody IgM Negative (Negative); Hepatitis B Core Antibody Negative (Negative); Hepatitis B surface Ag Negative (Negative); Hepatitis C Ab w Rflx HCV PCR Negative (Negative)
== END 2023-01-28 11:56 | disposition home or self-care (01) ==
LOC: NCHCN 11:55
PROVIDERS: PCP Physician Assistant; Visit Provider Physician Assistant
DX: R94.5 Abnormal results of liver function studies (principal)
CPT/HCPCS: 80048; 80076; 85027; 86704; 86709; 86803; 87340

== ENCOUNTER 2023-02-11 18:32 | Outpatient (REF) | payer MEDICARE, SELFPAY ==
[2023-02-11 21:54] LABS: ALT 29 U/L (14-59); AST 29 U/L (15-37); Albumin 2.7 g/dL (3.4-5.0); Alkaline Phosphatase 238 U/L (46-116); Anion Gap 10.6 mmol/L (3-11); BUN 26 mg/dL (7-18); Bilirubin, Direct 0.3 mg/dL (0.0-0.2); Bilirubin, Total 0.6 mg/dL (0.2-1.0); CO2 25.4 mmol/L (21.0-32.0); CREATININE 1.2 mg/dL (0.55-1.02); Calcium 9.8 mg/dL (8.5-10.1); Chloride 99 mmol/L (98-107); Estimated GFR 46.62 (mL/min/1.73m2); Glucose 100 mg/dL (74-106); Lipase 19 U/L (16-77); Potassium 4.8 mmol/L (3.5-5.1); Sodium 135 mmol/L (136-145); Total Protein 6.8 g/dL (6.4-8.2)
== END 2023-02-11 18:33 | disposition home or self-care (01) ==
LOC: NCHCN 18:32
PROVIDERS: PCP Physician Assistant; Visit Provider Physician Assistant
DX: R53.83 Other fatigue (principal); R94.5 Abnormal results of liver function studies; E03.9 Hypothyroidism, unspecified; I10 Essential (primary) hypertension; E78.5 Hyperlipidemia, unspecified; R79.89 Other specified abnormal findings of blood chemistry
CPT/HCPCS: 80048; 80076; 83690; 85018

== ENCOUNTER → 2023-02-19 00:18 | Outpatient (CLI) | payer MEDICARE, SELFPAY ==
--- NOTE | 2023-02-19 | DI.RAD_ITS ---
Exam(s) XR CERVICAL SPINE COMP 4-5V EXAM: XR CERVICAL SPINE COMP 4-5V CLINICAL HISTORY: LEFT NECK PAIN M54.2. TECHNIQUE: 2D digital imaging was performed. Six images were obtained. AP, odontoid, lateral and geni ateral oblique images were obtained. COMPARISON: No exams were available for comparison FINDINGS: The odontoid is intact. The lateral masses are well aligned. There is normal alignment of the cervi katherine spine. There is disc space narrowing at C5-C6. No acute fracture or subluxation is present. No si gnificant neural foraminal stenosis is present. The cervical thoracic junction is well maintained. The prevertebral soft tissues are unremarkable. Lung apices are clear. IMPRESSION: Mild degenerative changes of the cervical spine. If there are radicular concerns, an MRI the cervica l spine may be obtained. DATA REPOSITORY: RADIATION DOSE DELIVERED:
--- NOTE | 2023-02-19 | DI.MAMMO_ITS ---
Exam(s) MAMMO SCREENING EXAM: MAMMO SCREENING CLINICAL HISTORY: SCREENING FOR BREAST CANCER Z12.39 TECHNIQUE: Bilateral full field digital CC and MLO mammographic images were obtained with 3D tomosyn thesis and utilizing computer aided detection (CAD). COMPARISON: Available for comparison. FINDINGS: Masses/Architectural Distortion: There are scattered nodules in both breasts. No suspicious areas of architectural distortion or nodules are seen. Microcalcifications: No suspicious pleomorphic-type are seen. Skin Thickening/Nipple Retraction: None. IMPRESSION: 1. No significant interval change with no specific features of malignancy noted. 2. Unless there is more urgent need, screening mammography is recommended, as per [employer] guidelines. BI-RADS Category 2 - Benign Findings Breast Density - Category C - Heterogeneously dense Breast density category C or D implies that the patient has dense breast tissue. Dense breast tissue is very common and is not abnormal but dense breast tissue can make it harder to find cancer on a ma mmogram. Also, dense breast tissue may increase their breast cancer risk. This information about the result of the mammogram report was provided to the patient to raise their awareness. Use this report when you speak with the patient about their risks for breast cancer, which includes their family hist ory. At that time, you may recommend for more screening tests (Ultrasound or MRI) as they might be us eful based on their risk. A negative radiographic report should not delay biopsy if a dominant or clinically suspicious mass is present. Up to ten percent of cancers are not identified on mammography. A negative report may reinforce clinical impression. Adenosis and dense breasts may obscure an underlying neoplasm. False positive reports average 6 to 10%. Patient will receive a letter notifying them of these results.
== END ==
PROVIDERS: PCP Physician Assistant; Visit Provider Physician Assistant
DX: Z12.31 Encounter for screening mammogram for malignant neoplasm of breast (principal); M50.322 Other cervical disc degeneration at C5-C6 level
CPT/HCPCS: 77063; 77067; 72050

== ENCOUNTER → 2023-02-24 01:03 | Outpatient (CLI) | payer MEDICARE, SELFPAY ==
--- NOTE | 2023-02-24 | DI.US_ITS ---
Exam(s) US ABDOMEN EXAM: US ABDOMEN CLINICAL HISTORY: ELEVATED LFT'S,R94.5,DECREASED ALBUMIN TECHNIQUE: Ultrasound of complete upper abdomen performed using standard protocol. COMPARISON: CT CT CHEST LUNG CANCER SCREEN from 01/22/2023 FINDINGS: There is no ascites evident. LIVER: There are no hepatic lesions evident nor obvious dilatation of intrahepatic ducts. GALLBLADDER/BILIARY: There are multiple mobile layering small gallstones in the gallbladder lumen exh ibiting shadowing. No gallbladder wall edema evident. The common hepatic duct isnot dilated, measuring 3-4mm at the level of hussein hepatis. Lower down in the pancreatic head level the CBD appears dilated to 11 mm. Contains echogenic material. It delinea tion difficult PANCREAS: There is a 6 x 7 mm cyst in the anterior pancreatic body. There also appears to be a large r cystic structure in the pancreatic head region measuring approximately 1.6 x 2 cm. SPLEEN: The spleen is not enlarged and there are no intrasplenic lesions evident. KIDNEYS:Kidneys exhibit normal size with no evidence of solid mass, calculus, nor hydronephrosis. No cortical cysts evident. ABDOMINAL AORTA: There is no evidence of abdominal aortic aneurysm. IVC: Normal diameter where visualized. IMPRESSION: 1. Cholelithiasis. Multiple shadowing gallstones noted in the gallbladder lumen. The gallbladder d oes not appear edematous at this time. 2. Lower CBD at the level the pancreatic head appears prominent and containing echogenic material. 3. Cystic lesions in the pancreas. Contrast infused CT scan recommended. DATA REPOSITORY:
== END ==
PROVIDERS: PCP Physician Assistant; Visit Provider Physician Assistant
DX: K86.89 Other specified diseases of pancreas (principal); R94.5 Abnormal results of liver function studies
CPT/HCPCS: 76700

== ENCOUNTER → 2023-02-25 11:20 | Outpatient (BNVA) | payer MEDICARE, SELFPAY | PROVIDERS: PCP Physician Assistant; Referring Provider Physician Assistant; Visit Provider Surgery | DX: K80.20 Calculus of gallbladder without cholecystitis without obstruction (principal) | CPT/HCPCS: 99214 ==

== ENCOUNTER → 2023-03-17 00:25 | Outpatient (CLI) | payer MEDICARE, SELFPAY ==
--- NOTE | 2023-03-17 07:15 | DI.MRI_ITS ---
Exam(s) MR ABDOMEN WO EXAM: MR ABDOMEN WO CLINICAL HISTORY: pancreatic head cyst with dilated CBD,elevated lft's,r79.89 TECHNIQUE: Multiplanar multisequence MRI of the Abdomen was performed. COMPARISON: US ABD PELVIS TRANSVAG from 01/21/2012 CT ABD PELVIS WITH CONTRAST from 02/25/2012 MR MRI ABDOMEN WO,W from 03/09/2012 FINDINGS: Lung bases: Unremarkable. Liver: There 3 well-circumscribed homogeneously T2 hyperintense and T1 hypointense nodules in the geri er consistent with cysts. The largest measures 5 mm. No suspicious hepatic masses are seen. Pancreas: There is a 1.1 x 0.7 cm cyst in the body of the pancreas. This was present on the prior MR I of the abdomen from 03/09/2012. There is a 3 x 2 cm cyst in the head of the pancreas. This has show n interval increase in size compared to the prior MRI examination. They appear independent of the du ctal system. Gallbladder and Bile Ducts: Cholelithiasis. No biliary ductal dilatation. Adrenals: Unremarkable. Kidneys: There are tiny bilateral renal cysts. They are simple. No follow-up is recommended. No tobar spicious renal masses are seen. There is no evidence of hydronephrosis. Spleen: Unremarkable. Bowel: Unremarkable. No evidence of bowel obstruction or bowel wall thickening. Aorta: Unremarkable. Soft Tissues: Unremarkable. Bone: Unremarkable. Lymph Nodes: Unremarkable. IMPRESSION: 1. Pancreatic cysts. The largest measures 3 x 2 cm and is located in the head of the pancreas. The largest has shown interval increase in size compared to the examinations from 2012. There is no mura l nodule or wall thickening. There is normal caliber of the main pancreatic duct. A postcontrast MR I of the abdomen is recommended in this patient for further characterization. 2. Simple hepatic and renal cysts. No follow-up is recommended. Unexpected findings DATA REPOSITORY:
== END ==
PROVIDERS: PCP Physician Assistant; Visit Provider Surgery
DX: R79.89 Other specified abnormal findings of blood chemistry (principal); N28.1 Cyst of kidney, acquired; K86.2 Cyst of pancreas
CPT/HCPCS: 74181

== ENCOUNTER 2023-06-05 15:01 | Outpatient (REF) | payer MEDICARE, SELFPAY ==
[2023-06-05 16:02] LABS: ALT 21 U/L (14-59); AST 38 U/L (15-37); Albumin 3.3 g/dL (3.4-5.0); Alkaline Phosphatase 111 U/L (46-116); Anion Gap 7.1 mmol/L (3-11); BUN 12 mg/dL (7-18); Bilirubin, Total 0.4 mg/dL (0.2-1.0); CO2 27.9 mmol/L (21.0-32.0); CREATININE 0.4 mg/dL (0.55-1.02); Calcium 8.7 mg/dL (8.5-10.1); Calculated LDL 84 mg/dL (<100); Chloride 105 mmol/L (98-107); Cholesterol 162 mg/dL (<200); Estimated GFR 101.87 (mL/min/1.73m2); Glucose 84 mg/dL (74-106); HDL Cholesterol 51 mg/dL (40-60); Sodium 140 mmol/L (136-145); TSH 2.26 uIU/mL (0.36-3.74); Total Protein 6.9 g/dL (6.4-8.2); Triglyceride 135 mg/dL (<150)
== END 2023-06-05 15:02 | disposition home or self-care (01) ==
LOC: NCHCN 15:01
PROVIDERS: PCP Physician Assistant; Visit Provider Physician Assistant
DX: E03.9 Hypothyroidism, unspecified (principal); E78.5 Hyperlipidemia, unspecified
CPT/HCPCS: 80053; 80061; 84443

== ENCOUNTER 2023-09-19 07:16 | Emergency (ER) | payer MEDICARE, SELFPAY ==
[2023-09-19 07:24] VITALS: BP 209/84; PULSE 98; RESP 18; TEMP 36.8; O2SAT 96
--- NOTE | 2023-09-19 07:32 | ED.GENADUL_ITS ---
Discharge Plan Disposition Patient Disposition: Home Discharge Details Clinical Impression: Acute pain of left knee Primary Care Provider: Hiren Bahena ED Provider: Akash Espinoza Home Meds and New Rx's Prescriptions: Continued Incruse Ellipta 62.5 mcg/actuation blister with device 1 inh inhalation DAILY calcium carbonate [Calcium 500] 500 mg calcium (1,250 mg) tablet,chewable 500 mg PO DAILY cholecalciferol (vitamin D3) 25 mcg (1,000 unit) capsule 25 mcg PO DAILY fexofenadine-pseudoephedrine 180-240 mg tablet extended release 24 hr 1 tab PO QAM PRN omeprazole [Prilosec] 20 MG capsule,delayed release(DR/EC) 20 mg PO DAILY multivitamin Tablet 1 tab PO DAILY atorvastatin 10 mg tablet 10 mg PO QHS Patient Comments: TAKE ONE TABLET BY MOUTH AT BEDTIME metoprolol succinate [Toprol XL] 100 mg tablet extended release 24 hr 100 mg PO DAILY Patient Comments: Take 1 tablet by mouth once a day aspirin 81 mg Tablet,Delayed Release (Dr/Ec) 81 mg PO DAILY levothyroxine 88 mcg tablet 88 mcg PO DAILY Patient Comments: Take 1 tablet by mouth once a day potassium chloride 20 mEq tablet,ER particles/crystals 20 meq PO BID Patient Comments: TAKE ONE TABLET BY MOUTH EVERY DAY valsartan 320 mg tablet 320 mg PO DAILY mirtazapine 7.5 mg tablet 7.5 mg PO QHS Patient Comments: Take 1 tablet by mouth at bedtime magnesium Tablet 1 tab PO DAILY Discharge Instructions Instructions: Knee Pain (ED) Additional Instructions: You are seen in the emergency department for your knee pain. Your x-ray showed no sign of any fractures. You may have arthritis in your knee. Please follow- up next week with your primary care provider. As we discussed, please discontinue taking ibuprofen (Advil) as this makes you at increased risk for bleeding given your aspirin use. Please return to the emergency department if you develop any redness at your knee decreased range of motion or any fevers. Please also return if you develop numbness or tingling in your left foot or if your left foot turns blue. For your pain please take medications as follows: 1. Take acetaminophen (Tylenol), 1,000 mg (two 500 mg tabs) every 6 hours Discharge Data Discharge Date/Time-TO BE ENTERED AT DEPARTURE: 09/19/23 09:57 HPI General Date/Time Provider Initiated Documentation: 09/19/23 07:32 . HPI Narrative: MDM This is an overall very well-appearing normothermic and not tachycardic 78-year-old female with acute on chronic left knee pain reassuring against dangerous etiologies based on history and physical. No pain out of proportion to suggest necrotizing soft tissue infection. No significant erythema nor swelling nor significant reduction in range of motion to suggest septic joint. Not a diabetic nor a vasculopath and warm well-perfused distal extremities so my suspicion is low for aortic occlusion aortic dissection and thromboembolic disease. Patient has no calf tenderness to suggest DVT. No Achilles pain to suggest ruptured Achilles tendon so I did not perform a Quezada test. Furthermore no recent fluoroquinolones. No hyperreflexia to suggest upper motor neuron syndrome. Patient is able to straight leg raise so my suspicion is exceedingly low for quadriceps tendon rupture in the absence of trauma. No rash to suggest zoster. No erythema to suggest cellulitis. No fluctuance to suggest abscess. No obvious effusion so no indication for arthrocentesis as I am not suspicious for any crystallopathy such as gout. Not anticoagulation to suggest increased risk for hemarthrosis. No significant laxity so my suspicion is low for ligamentous injury and based on the patient's age I feel that the risks of knee immobilization outweigh the benefits. Patient does have osteoarthritis reportedly in her neck and certainly could have osteoarthritis in her left lower extremity. I counseled her on appropriate analgesia with acetaminophen rather than ibuprofen given her daily 81 mg of aspirin. Given no significant shortness of breath and no bilateral lower extremity swelling I am not suspicious for acute heart failure. Her blood pressure was markedly elevated in the ED. She does take valsartan and metoprolol. Will confirm with her whether or not these have been taking today and will dose if she has not taken these. 8:15 AM Patient has not yet taken her metoprolol nor her valsartan so well redosed these. Patient reports that she has discontinued her hydrochlorothiazide as she thought that it resulted in leg swelling. 9:43 AM Radiology read showing no acute or suspicious abnormality in the left knee. Will proceed with empiric trial of discharge with expectant outpatient management. Patient and I discussed return indications including any cyanosis or numbness or tingling in left foot or any significant swelling or erythema to left knee. Chronic conditions affecting the care of the patient: Osteoarthritis hypertension History obtained from an outside historian: N/A External record review: N/A Medications: Acetaminophen Social determinants of health affecting disposition: N/A Management discussed with: N/A Treatment/interventions considered: N/A Response to therapies provided: Mildly improved pain in the ED. HPI This is a 78-year-old female with history of hypertension and osteoarthritis arrived to the emergency department via private vehicle with her in the setting of left knee pain. Patient reports that she fell on her bilateral knees approximately 2 years ago. Patient reports that subsequently she has had chronic pain in her bilateral knees. For the past 2 weeks her left knee has become increasingly painful and feels more swollen. She denies any recurrent trauma. Patient has not recently been on antibiotics. She denies any fevers. She denies any numbness or tingling in her bilateral lower extremities. She has been taking 200 to 300 mg of ibuprofen approximately 3 times a day. She also takes aspirin at home. She has not had any black or bloody stools. She has no history of diabetes or AAA. She is never had any surgeries to her knee. She denies fevers nausea vomiting chest pain abdominal pain and shortness of breath. She is a daily smoker but denies routine ethanol and illicits. Exam General: Well-appearing in no acute distress speaking in complete sentences. Head: Normocephalic, atraumatic. Eye: Extraocular eye movements intact. No conjunctival injection. No scleral icterus. Ear, nose, mouth, throat: Grossly normal inspection. Normal voice, handling secretions normally. Neck: Trachea midline. Cardiovascular: Well-perfused distal extremities. Respiratory: Nonlabored respiration. Gastrointestinal: Nondistended abdomen. Musculoskeletal: Left lower extremity: No obvious trauma to the left lower extremity. No lacerations. No ecchymosis. No erythema. No fluctuance. Left foot warm and well-perfused with 2+ left PT and DP pulse. Patient is able to straight leg raise. She has 5 out of 5 left lower extremity strength on dorsi and plantarflexion. No hyperreflexia. Patient is able to flex her left knee approximately 25 degrees. No significant laxity on valgus or varus stress test. Negative anterior posterior drawer. No calf tenderness. No significant left knee effusion. Skin: Normal for age and race, grossly normal temperature and turgor. No acute rash. Neurologic: Alert and appropriate, no apparent acute deficits. Psychiatric: Mood and manner are appropriate. Grooming and personal hygiene are appropriate. Related Data Home Medications Medication Instructions Recorded Confirmed omeprazole 20 mg capsule,delayed 20 mg PO DAILY 05/16/15 09/19/23 release (Prilosec) aspirin 81 mg tablet,delayed 81 mg PO DAILY 01/19/23 09/19/23 release atorvastatin 10 mg tablet 10 mg PO QHS 01/19/23 09/19/23 levothyroxine 88 mcg tablet 88 mcg PO DAILY 01/19/23 09/19/23 magnesium 1 tab PO DAILY 01/19/23 09/19/23 metoprolol succinate 100 mg 100 mg PO DAILY 01/19/23 09/19/23 tablet,extended release 24 hr (Toprol XL) mirtazapine 7.5 mg tablet 7.5 mg PO QHS 01/19/23 09/19/23 multivitamin 1 tab PO DAILY 01/19/23 09/19/23 potassium chloride 20 mEq 20 meq PO BID 01/19/23 09/19/23 tablet,extended release(part/cryst) valsartan 320 mg tablet 320 mg PO DAILY 01/19/23 09/19/23 fexofenadine-pseudoephedrine ER 1 tab PO QAM PRN 01/27/23 09/19/23 180 mg-240 mg tablet,ext.release 24 hr calcium carbonate 500 mg calcium 500 mg PO DAILY 02/25/23 09/19/23 (1,250 mg) chewable tablet (Calcium 500) cholecalciferol (vitamin D3) 25 25 mcg PO DAILY 02/25/23 09/19/23 mcg (1,000 unit) capsule umeclidinium 62.5 mcg/actuation 1 inh inhalation DAILY 02/25/23 09/19/23 blister powder for inhalation (Incruse Ellipta) Allergies Allergy/AdvReac Type Severity Reaction Status Date / Time bupropion Allergy Mild Hives Unverified 09/19/23 08:24 escitalopram Allergy Mild Itching Unverified 09/19/23 08:24 Penicillins AdvReac Intermediate Skin Rash Unverified 09/19/23 08:24 Sulfa (Sulfonamide AdvReac Intermediate thrush Unverified 09/19/23 08:24 Antibiotics) lisinopril AdvReac Unknown Other (See Unverified 09/19/23 08:24 Comment) General Stated Complaint: Orthopedic AUTUMN: 3 Course Vital Signs Vital signs: Vital Signs Temperature 36.8 C 09/19/23 07:24 Pulse 98 H 09/19/23 07:24 Respiratory Rate 18 09/19/23 07:24 Blood Pressure 209/84 H 09/19/23 07:24 Pulse Oximetry 96 09/19/23 07:24 Temperature 36.8 C 09/19/23 07:24 Temperature Source Temporal Artery Scan 09/19/23 07:24 Pulse 98 H 09/19/23 07:24 Respiratory Rate 18 09/19/23 07:24 Blood Pressure 209/84 H 09/19/23 07:24 Blood Pressure Position Sitting 09/19/23 07:24 Pulse Oximetry 96 09/19/23 07:24 Oxygen Delivery Method Room Air 09/19/23 07:24 Oxygen Flow Rate 0 09/19/23 07:24 Medical Decision Making Quality:SDOH Health Related Social Needs: No Data to Display PFSH All Active Problems (Updated 09/19/23 @ 08:08 by Akash Espinoza MD) Acute pain of left knee (Acute) Pancreatic cyst (Acute) Cholelithiasis (Acute) Fatigue (Acute) Elevated liver function tests (Acute) Medical History (Updated 09/19/23 @ 08:08 by Akash Espinoza MD) Thoracic aortic aneurysm without rupture IBS (irritable bowel syndrome) Hypertension Hyperlipidemia Diverticulosis of colon Anxiety Pancreatic mass Family hx of colon cancer Headache History of IBS COPD (chronic obstructive pulmonary disease) Hypothyroidism Insomnia Heartburn Major depression in remission BMI 38.0-38.9,adult Allergic rhinitis Postnasal drip Lower leg edema Asymptomatic postmenopausal status Vertigo History of neck pain Smoker Leg weakness Social History Smoking/Tobacco Use Status: Current every day Tobacco Type: cigarettes Smoking risk assessment performed?: Yes Alcohol Intake: former Drug use: Never Substance use type: does not use Housing: house Current gender identity: female Do you feel safe at home: Yes Do you feel safe in your relationship?: Yes
--- NOTE | 2023-09-19 08:08 | DI.RAD_ITS ---
Exam(s) XR KNEE LT 3V AP,LAT,FISH EXAM: XR KNEE LT 3V AP,LAT,FISH CLINICAL HISTORY: knee pain. TECHNIQUE: 2D digital imaging was performed of the left knee. Three images were obtained. AP, late ral and PA tunnel views were obtained. COMPARISON: No exams were available for comparison FINDINGS: BONES: No acute fracture is present. No bony destructive lesion is seen. There is a small sclerotic lesion seen in the distal femur at the top edge of the films. No periosteal reaction or cortical dis ruption is seen. This likely reflects a benign lesion such as a enchondroma or bone infarct. JOINTS: The knee is normally aligned. The articular surfaces are well maintained. There is a small joint effusion. No loose body. SOFT TISSUE: Normal. IMPRESSION: 1. Small joint effusion. 2. No acute fracture or dislocation. DATA REPOSITORY: RADIATION DOSE DELIVERED:
[2023-09-19] MEDS: Metoprolol CR 100 MG TABCR PO (08:30)
[2023-09-19] MEDS: Valsartan 80 MG TAB 320 MG PO (08:30)
[2023-09-19] MEDS: Acetaminophen 500 MG TAB 1000 MG PO (08:30)
--- NOTE | 2023-09-19 09:32 | DI.VRAD_ITS ---
PROCEDURE INFORMATION: Exam: XR Left Knee Exam date and time: 09/19/2023 8:01 AM Age: 78 years old Clinical indication: Pain; Knee; Left TECHNIQUE: Imaging protocol: Radiologic exam of the left knee. Views: 3 views obtained with weight-bearing. COMPARISON: No relevant prior studies available. FINDINGS: Bones/joints: There are no fractures or suspicious osseous lesions. There is an approximately 1.3 cm irregular mildly sclerotic intramedullary lesion in the distal femur which has a benign/nonaggressive appearance, possibly an enchondroma. Alignment is anatomic. Joint spaces are maintained. There are no significant osseous productive changes. There is no visible joint effusion. Soft tissues: No acute or suspicious abnormality. IMPRESSION: No acute or suspicious abnormality in the left knee. Dictated and Authenticated by: Yashira Rowland MD. Ordering:ETHAN Bustos MD
== END 2023-09-19 09:57 | disposition home or self-care (01) ==
PROVIDERS: Emergency Provider Emergency Medicine; PCP Physician Assistant
DX: M25.562 Pain in left knee (principal); Z91.81 History of falling
CPT/HCPCS: 73562; 99283

== ENCOUNTER 2024-03-10 10:45 | Emergency (ER) | payer MEDICARE, SELFPAY ==
--- NOTE | 2024-03-10 10:45 | RT.EKG_ITS ---
APPROVED REPORT Exam: Resting ECG Reason for Exam: chest pain Patient Location: E HR:81 bpm ECG Measurements Heart Rate 81 AXIS CO 144 P 48 QRSd 83 QRS 39 QT 373 T [id number] QTc 432 Conclusion Sinus rhythm...normal P axis, V-rate 60- 99 no stemi
[2024-03-10 10:47] VITALS: BP 198/88; PULSE 88; RESP 16; TEMP 35.6; O2SAT 98
--- NOTE | 2024-03-10 10:50 | W.ED.GENAD ---
Discharge Plan Disposition Patient Disposition: Home Condition: Stable Discharge Details Clinical Impression: Acute mastitis Primary Care Provider: Hiren Bahena ED Provider: Murphy Marrufo Home Meds and New Rx's Prescriptions: New doxycycline hyclate 100 mg capsule 100 mg PO BID Qty: 20 0RF Continued Incruse Ellipta 62.5 mcg/actuation blister with device 1 inh inhalation DAILY calcium carbonate [Calcium 500] 500 mg calcium (1,250 mg) tablet,chewable 500 mg PO DAILY cholecalciferol (vitamin D3) 25 mcg (1,000 unit) capsule 25 mcg PO DAILY fexofenadine-pseudoephedrine 180-240 mg tablet extended release 24 hr 1 tab PO QAM PRN omeprazole [Prilosec] 20 MG capsule,delayed release(DR/EC) 20 mg PO DAILY multivitamin Tablet 1 tab PO DAILY atorvastatin 10 mg tablet 10 mg PO QHS Patient Comments: TAKE ONE TABLET BY MOUTH AT BEDTIME metoprolol succinate [Toprol XL] 100 mg tablet extended release 24 hr 100 mg PO DAILY Patient Comments: Take 1 tablet by mouth once a day aspirin 81 mg Tablet,Delayed Release (Dr/Ec) 81 mg PO DAILY levothyroxine 88 mcg tablet 88 mcg PO DAILY Patient Comments: Take 1 tablet by mouth once a day potassium chloride 20 mEq tablet,ER particles/crystals 20 meq PO BID Patient Comments: TAKE ONE TABLET BY MOUTH EVERY DAY valsartan 320 mg tablet 320 mg PO DAILY mirtazapine 7.5 mg tablet 7.5 mg PO QHS Patient Comments: Take 1 tablet by mouth at bedtime magnesium Tablet 1 tab PO DAILY hydrochlorothiazide 12.5 mg tablet 12.5 mg PO ONCE celecoxib 200 mg capsule 200 mg PO DAILY Discharge Instructions Instructions: Mastitis Additional Instructions: Doxycycline as directed. Warm moist compresses every 2 hours for 20 minutes. Please watch for new or worsening symptoms and return to the ER for any concerns. Follow-up with your primary care provider as already scheduled on Thursday. As we discussed if symptoms are not improving then reimaging is likely indicated to further rule out other etiologies such as inflammatory malignancy. HPI General Mode of arrival: ambulatory. Date/Time Provider Initiated Documentation: 03/10/24 10:50. Limitations to Documentation: no limitations. Information obtained by: patient. History of Present Illness 78 year old F presents to the emergency department with the chief complaint of Left breast pain, described as moderate, with intensity rated at 5. Quality is described as sharp and constant, and is localized to the chest (Left breast). Patient reports no radiation. Patient started experiencing this day(s) (1) and it has been constant. No relieving factors improve symptom(s), Other factors that worsen symptoms (Movement, direct palpation) . Patient notes denies chest pain, cough, fever/chills and shortness of breath. Patient did receive the following treatments prior to arrival, none Related Data Home Medications ?Medication ?Instructions ?Recorded ?Confirmed omeprazole 20 mg capsule,delayed 20 mg PO DAILY 05/16/15 03/10/24 release (Prilosec) aspirin 81 mg tablet,delayed 81 mg PO DAILY 01/19/23 03/10/24 release atorvastatin 10 mg tablet 10 mg PO QHS 01/19/23 03/10/24 levothyroxine 88 mcg tablet 88 mcg PO DAILY 01/19/23 03/10/24 magnesium 1 tab PO DAILY 01/19/23 03/10/24 metoprolol succinate 100 mg 100 mg PO DAILY 01/19/23 03/10/24 tablet,extended release 24 hr (Toprol XL) mirtazapine 7.5 mg tablet 7.5 mg PO QHS 01/19/23 03/10/24 multivitamin 1 tab PO DAILY 01/19/23 03/10/24 potassium chloride 20 mEq 20 meq PO BID 01/19/23 03/10/24 tablet,extended release(part/cryst) valsartan 320 mg tablet 320 mg PO DAILY 01/19/23 03/10/24 fexofenadine-pseudoephedrine ER 1 tab PO QAM PRN 01/27/23 03/10/24 180 mg-240 mg tablet,ext.release 24 hr calcium carbonate (Calcium 500) 500 mg PO DAILY 02/25/23 03/10/24 cholecalciferol (vitamin D3) 25 25 mcg PO DAILY 02/25/23 03/10/24 mcg (1,000 unit) capsule umeclidinium 62.5 mcg/actuation 1 inh inhalation DAILY 02/25/23 03/10/24 blister powder for inhalation (Incruse Ellipta) celecoxib 200 mg capsule 200 mg PO DAILY 03/10/24 03/10/24 doxycycline hyclate 100 mg capsule 100 mg PO BID #20 caps 03/10/24 hydrochlorothiazide 12.5 mg tablet 12.5 mg PO ONCE 03/10/24 03/10/24 Previous Rx's ?Medication ?Instructions ?Recorded doxycycline hyclate 100 mg capsule 100 mg PO BID #20 caps 03/10/24 Allergies Allergy/AdvReac Type Severity Reaction Status Date / Time bupropion Allergy Mild Hives Verified 03/10/24 10:51 escitalopram Allergy Mild Itching Verified 03/10/24 10:51 Penicillins AdvReac Intermediate Skin Rash Verified 03/10/24 10:51 Sulfa (Sulfonamide AdvReac Intermediate thrush Verified 03/10/24 10:51 Antibiotics) lisinopril AdvReac Unknown Other (See Verified 03/10/24 10:51 Comment) General AUTUMN: 3 Review of Systems Constitutional Constitutional: Denies fever(s) ENT Ears, Nose, Mouth, and Throat: Denies neck pain Cardiovascular Cardiovascular: Denies chest pain and Denies dyspnea Respiratory Respiratory: Denies cough and Denies dyspnea Gastrointestinal Gastrointestinal: Denies abdominal pain, Denies nausea and Denies vomiting Musculoskeletal Musculoskeletal: Denies back pain and Denies neck pain Integumentary/Breasts Skin/Breast: Denies breast swelling, Reports breast skin changes (More of fibrous tissue), Reports breast pain, Denies breast mass, Denies change in pigmentation and Denies rash Exam Const General: cooperative, healthy appearing, comfortable and no acute distress Orientation: alert, awake and oriented x3 HENMT Head: normal to inspection, normocephalic and atraumatic Face and sinus: normal facial exam Mouth: moist mucous membranes Eyes Conjunctivae: conjunctivae normal Neck Neck: normal visual inspection, full ROM, no lymphadenopathy, trachea midline and supple Chest Chest: normal inspection of the chest Breast inspection: normal inspection of the breasts and normal inspection of the axillae Breast palpation: normal palpation of the axillae, no axillary lymphadenopathy and abnormal palpation of the breast left upper inner fibrous tissue prominence and tenderness; no inuduration Chest/axillae images: 1. Mild erythema Resp Effort & Inspection: normal respiratory effort and able to speak in complete sentences Auscultation: clear to auscultation bilaterally Cardio Rate: regular rate Rhythm: regular rhythm GI Palpation: soft and nontender Back/Spine/Pelvis Back: no CVA tenderness and No back tenderness Skin General skin exam: no rashes or lesions noted Neuro General: patient alert, patient awake, moves all extremities and no focal motor deficits Sensory Exam: no sensory deficits noted Psych Appearance: grossly normal Mental Status: mental status grossly normal Medical Decision Making This is a 78-year-old female who reports nontraumatic left breast pain that began yesterday. Patient states the pain is fairly constant but worse with direct palpation of her breast for movement. Contacted her PCP, cannot be seen in the office until Thursday, recommended going to the ER for evaluation and ultrasound. Given chief complaint, EKG was performed in triage. No chest pain or shortness of breath. Patient is very adamant that this is true breast pain and not any chest pain. I see no indication to further workup with laboratory values, chest x-ray, etc. Based upon her HPI and examination, extremely low suspicion for ACS. Clinically this appears to be a mastitis. Given her age, concern for malignancy. No fever, nipple discharge, or evidence of systemic infection. Will obtain ultrasound to rule out abscess. Left breast ultrasound completed, entire breast is edematous. Most probably related to mastitis. Appropriate imaging follow-up recommended after antibiotic treatment, can never rule out inflammatory malignancy. Discussed examination and ultrasound findings. Given her allergy to penicillins and sulfa, will place on doxycycline 100 mg twice daily for the next 10 days. Encouraged warm moist compresses. Discussed her ultrasound findings and given her age, cannot definitively rule out inflammatory malignancy. Therefore recommend that she follows up with her PCP on Thursday for reevaluation. Patient does understand that outpatient imaging may be indicated to further evaluate her symptoms. Encouraged to return to the ER for new or evolving symptoms. Standard discharge and return precautions were provided. Patient understands, is agreeable to this plan, and has no additional questions or concerns upon discharge. This documentation was generated using [employer] system, please disregard any oddities of phrase or misspellings. Medical Records Medical records reviewed: Yes I reviewed the patient's medical records. ECG Data Attestation: I personally reviewed and interpreted this ECG (s) as follows: Interpretation: Sinus rhythm, ventricular rate of 81. No STEMI. Unchanged from prior EKG. Please see official report by Dr. Navarro. Quality:[facility] Health Related Social Needs: No Data to Display [facility] All Active Problems (Updated 03/10/24 @ 12:01 by Murphy J Yaron, PA) Acute mastitis (Acute) Pancreatic cyst (Acute) Cholelithiasis (Acute) Fatigue (Acute) Elevated liver function tests (Acute) Medical History Thoracic aortic aneurysm without rupture IBS (irritable bowel syndrome) Hypertension Hyperlipidemia Diverticulosis of colon Anxiety Pancreatic mass Family hx of colon cancer Headache History of IBS COPD (chronic obstructive pulmonary disease) Hypothyroidism Insomnia Heartburn Major depression in remission BMI 38.0-38.9,adult Allergic rhinitis Postnasal drip Lower leg edema Asymptomatic postmenopausal status Vertigo History of neck pain Smoker Leg weakness Social History Smoking/Tobacco Use Status: Current every day Tobacco Type: cigarettes Smoking risk assessment performed?: Yes Alcohol Intake: former Drug use: Never Substance use type: does not use Housing: house Current gender identity: female Do you feel safe at home: Yes Do you feel safe in your relationship?: Yes
--- NOTE | 2024-03-10 11:00 | DI.US_ITS ---
Exam(s) US BREAST LT COMPLETE EXAM: US BREAST LT COMPLETE CLINICAL HISTORY: Pain. TECHNIQUE: Complete ultrasound of the left breast was performed including all 4 quadrants, the retro areolar region, and the ipsilateral axilla. COMPARISON: Prior mammograms were reviewed. This patient presents today in the emergency room with a cute painful erythematous left breast. No penetrating nor line trauma history. no recent bites. D enies nipple discharge FINDINGS: All 4 quadrants are edematous but there does not appear to be a truly discernible focal abscess. No cysts. No solid masses evident. Scanning of the left axilla is negative for significant adenopathy. IMPRESSION: The entire breast is edematous. Most probably related to mastitis. Appropriate imaging follow-up recommended after antibiotic treatment. Can never rule out inflammator y malignancy. Report called to ER provider BI-RADS Category 0 - Incomplete: Need additional imaging evaluation Breast Density - Category B - Scattered areas of fibroglandular density Breast density Category C or D implies that the patient has dense breast tissue. Dense breast tissue can make it harder to find cancer on a mammogram. Dense breast tissue is also associated with an incr eased risk of breast cancer. This information about the result of the mammogram report was provided to the patient to raise their awareness. Use this report when you speak with the patient about their risks for breast cancer, which includes their family history. At that time, you may recommend additional screening tests (Ultrasoun d or MRI) as these tests may add significant information. A negative radiographic report should not delay biopsy if a dominant or clinically suspicious mass is present. Up to ten percent of cancers are not identified on mammography. A negative report may reinforce clinical impression. Adenosis and dense breasts may obscure an underlying neoplasm. False positive reports average 6 to 10%. Patient will receive a letter notifying them of these results.
[2024-03-10 11:22] VITALS: BP 198/88; PULSE 88; RESP 16; TEMP 35.6; O2SAT 98
[2024-03-10 11:34] VITALS: RESP 16
[2024-03-10 11:46] VITALS: BP 140/90; PULSE 76; RESP 18; TEMP 37.2; O2SAT 97
[2024-03-10] MEDS: Doxycycline Hyclate 100 MG CAP PO (12:04)
== END 2024-03-10 12:10 | disposition home or self-care (01) ==
PROVIDERS: Emergency Provider Physician Assistant; PCP Physician Assistant
DX: N61.0 Mastitis without abscess (principal); J44.9 Chronic obstructive pulmonary disease, unspecified; E78.5 Hyperlipidemia, unspecified; F17.210 Nicotine dependence, cigarettes, uncomplicated; Z79.82 Long term (current) use of aspirin
CPT/HCPCS: 76642; 93005; 99284; 93010; 99283

== ENCOUNTER 2024-07-25 09:32 | Outpatient (REF) | payer MEDICARE, SELFPAY ==
[2024-07-25 15:37] LABS: HCT 41.8 % (36.0-46.0); HGB 13.7 g/dL (11.2-15.7); MCH 29.7 pg (27.0-33.0); MCHC 32.8 % (32.0-36.0); MCV 91 fL (80-95); MPV 12.7 fL (8.0-11.0); Platelet Count 202 10^3/uL (130-400); RBC 4.61 10^6/uL (3.93-5.22); RDW 13.2 % (11.7-14.6); RDW-SD 43.7 fL; WBC 9.82 10^3/uL (4.4-10.8)
[2024-07-25 17:05] LABS: ALT 24 U/L (14-59); AST 18 U/L (15-37); Albumin 3.7 g/dL (3.4-5.0); Alkaline Phosphatase 94 U/L (46-116); Anion Gap 8.9 mmol/L (3-11); BUN 13 mg/dL (7-18); Bilirubin, Total 0.46 mg/dL (0.2-1.0); CO2 29.1 mmol/L (21.0-32.0); CREATININE 0.7 mg/dL (0.55-1.02); Calcium 9.2 mg/dL (8.5-10.1); Calculated LDL 76 mg/dL (<100); Chloride 110 mmol/L (98-107); Cholesterol 171 mg/dL (<200); Estimated GFR 88.47 (mL/min/1.73m2); Glucose 97 mg/dL (74-106); HDL Cholesterol 60 mg/dL (40-60); Potassium 3.6 mmol/L (3.5-5.1); Sodium 148 mmol/L (136-145); TSH 2.25 uIU/mL (0.36-3.74); Total Protein 6.9 g/dL (6.4-8.2); Triglyceride 175 mg/dL (<150)
== END 2024-07-25 09:33 | disposition home or self-care (01) ==
LOC: NCHCN 09:32
PROVIDERS: PCP Physician Assistant; Visit Provider Physician Assistant
DX: I10 Essential (primary) hypertension (principal)
CPT/HCPCS: 80053; 80061; 85027; 84443

== ENCOUNTER 2024-09-05 00:49 | Outpatient (CLI) | payer MEDICARE, SELFPAY ==
--- NOTE | 2024-09-05 09:01 | DI.MAMMO_ITS ---
Exam(s) MAMMO SCREENING EXAM: MAMMO SCREENING CLINICAL HISTORY: Z12.31 Screening TECHNIQUE: Mammograms were interpreted according to the usual protocol including computer analysis w [employer] Dual[employer] CAD system, tomosynthesis and C-view imaging. COMPARISON: 2014 through 2022 FINDINGS: The breasts are composed of scattered fibroglandular densities, Breast Density category B. No suspicious masses or suspicious microcalcifications are seen. No skin thickening or abnormal axillary lymph nodes are seen. There has been no significant change from prior exams. IMPRESSION: BI-RADS Category 1, Negative mammogram Yearly screening mammography is recommended. Breast Density - Category B, scattered fibroglandular densities. A negative radiographic report should not delay biopsy if a dominant or clinically suspicious mass is present. Up to ten percent of cancers are not identified on mammography. A negative report may reinforce clinical impression. Adenosis and dense breasts may obscure an underlying neoplasm. False positive reports average 6 to 10%. Patient will receive a letter notifying them of these results.
== END 2024-09-05 01:09 ==
LOC: DI 00:49
PROVIDERS: PCP Physician Assistant; Visit Provider Physician Assistant
DX: Z12.31 Encounter for screening mammogram for malignant neoplasm of breast (principal); R92.323 Mammographic fibroglandular density, bilateral breasts
CPT/HCPCS: 77063; 77067

== ENCOUNTER 2025-04-15 11:52 | Emergency (ER) | payer MEDICARE, SELFPAY ==
[2025-04-15 12:05] VITALS: BP 180/90; PULSE 66; RESP 16; O2SAT 98
--- NOTE | 2025-04-15 12:15 | DI.RAD_ITS ---
Exam(s) XR RIBS RT W PA LAT CHEST EXAM: XR RIBS RT W PA LAT CHEST CLINICAL HISTORY: Fall out of bed 3-4 days ago TECHNIQUE: 2D digital imaging was performed.Six images were obtained. COMPARISON: CR XR CHEST 2V PA LATERAL from 10/18/2018 CR XR CHEST 2V PA LATERAL from 01/19/[address] CHEST LUNG CANCER SCREEN from 01/22/2023 FINDINGS: MEDIASTINUM: Normal. HEART: Normal. PULMONARY VASCULATURE: Normal. LUNGS: Clear. PLEURAL SPACE: No pleural effusion or pneumothorax. BONE:There are degenerative changes seen in the shoulders bilaterally. RIGHT RIBS: Normal. OTHER FINDINGS:Normal. IMPRESSION: 1. No acute pulmonary findings. 2. No evidence of a displaced right rib fracture. DATA REPOSITORY: RADIATION DOSE DELIVERED:
--- NOTE | 2025-04-15 12:17 | W.ED.GENAD ---
Discharge Plan Disposition Patient Disposition: Home Condition: Stable Discharge Details Clinical Impression: Fall, Chest wall contusion, Closed head injury without concussion Primary Care Provider: Hiren Bahena ED Provider: Susana Macias Home Meds and New Rx's Prescriptions: Continued Incruse Ellipta 62.5 mcg/actuation blister with device 1 inh inhalation DAILY calcium carbonate [Calcium 500] 500 mg calcium (1,250 mg) tablet,chewable 500 mg PO DAILY cholecalciferol (vitamin D3) 25 mcg (1,000 unit) capsule 25 mcg PO DAILY omeprazole [Prilosec] 20 MG capsule,delayed release(DR/EC) 20 mg PO DAILY multivitamin Tablet 1 tab PO DAILY atorvastatin 10 mg tablet 10 mg PO QHS Patient Comments: TAKE ONE TABLET BY MOUTH AT BEDTIME metoprolol succinate [Toprol XL] 100 mg tablet extended release 24 hr 100 mg PO DAILY Patient Comments: Take 1 tablet by mouth once a day aspirin 81 mg Tablet,Delayed Release (Dr/Ec) 81 mg PO DAILY levothyroxine 88 mcg tablet 88 mcg PO DAILY Patient Comments: Take 1 tablet by mouth once a day valsartan 320 mg tablet 320 mg PO DAILY mirtazapine 7.5 mg tablet 7.5 mg PO QHS Patient Comments: Take 1 tablet by mouth at bedtime magnesium Tablet 1 tab PO DAILY hydrochlorothiazide 12.5 mg tablet 12.5 mg PO ONCE celecoxib 200 mg capsule 200 mg PO DAILY PRN Discharge Instructions Instructions: Head Injury Observation (DC), Bruised Rib, Preventing Falls ED Additional Instructions: No evidence of fracture noted on the x-rays today. I do suspect that you have contused rib. You may use lidocaine patches which we have given you here today that you can get [id number] and apply to the most painful area. Continue taking Tylenol as directed. You may also apply ice. Please return to the ER for any worsening shortness of breath, coughing up green or yellow-colored sputum, worsening shortness of breath, chest pain or concerns. Referrals: Hiren Bahena [Primary Care Provider, Medicine] - 5 days Referral Note: ER follow-up, call for an appointment Clinical Impression: Closed head injury without concussion; Chest wall contusion HPI General Mode of arrival: ambulatory. Date/Time Provider Initiated Documentation: 04/15/25 11:55. Limitations to Documentation: no limitations. Information obtained by: patient, RN notes reviewed and old records reviewed. HPI Narrative: 79-year-old female presents to the ER with a chief complaint of right sided rib pain after falling out of bed few days ago. She denies any shortness of breath or productive cough, she did hit the bridge of her nose and has some healing bruising noted to the bridge of her nose and underneath her eyes. Denies any loss of consciousness denies any neck or back pain. She describes the pain to her right lateral rib cage that radiates into her right arm and mid chest. Denies any other associated symptoms or concerns. She does take aspirin every day and has been taking Tylenol for the pain. Related Data Home Medications ?Medication ?Instructions ?Recorded ?Confirmed omeprazole 20 mg capsule,delayed 20 mg PO DAILY 05/16/15 04/15/25 release (Prilosec) aspirin 81 mg tablet,delayed 81 mg PO DAILY 01/19/23 04/15/25 release atorvastatin 10 mg tablet 10 mg PO QHS 01/19/23 04/15/25 levothyroxine 88 mcg tablet 88 mcg PO DAILY 01/19/23 04/15/25 magnesium 1 tab PO DAILY 01/19/23 04/15/25 metoprolol succinate 100 mg 100 mg PO DAILY 01/19/23 04/15/25 tablet,extended release 24 hr (Toprol XL) mirtazapine 7.5 mg tablet 7.5 mg PO QHS 01/19/23 04/15/25 multivitamin 1 tab PO DAILY 01/19/23 04/15/25 valsartan 320 mg tablet 320 mg PO DAILY 01/19/23 04/15/25 calcium carbonate (Calcium 500) 500 mg PO DAILY 02/25/23 04/15/25 cholecalciferol (vitamin D3) 25 25 mcg PO DAILY 02/25/23 04/15/25 mcg (1,000 unit) capsule umeclidinium 62.5 mcg/actuation 1 inh inhalation DAILY 02/25/23 04/15/25 blister powder for inhalation (Incruse Ellipta) celecoxib 200 mg capsule 200 mg PO DAILY PRN 03/10/24 04/15/25 hydrochlorothiazide 12.5 mg tablet 12.5 mg PO ONCE 03/10/24 04/15/25 Allergies Allergy/AdvReac Type Severity Reaction Status Date / Time bupropion Allergy Mild Hives Verified 10/25/25 12:18 escitalopram Allergy Mild Itching Verified 04/15/25 12:18 Penicillins AdvReac Intermediate Skin Rash Verified 04/15/25 12:18 Sulfa (Sulfonamide AdvReac Intermediate thrush Verified 04/15/25 12:18 Antibiotics) lisinopril AdvReac Unknown Other (See Verified 04/15/25 12:18 Comment) General Stated Complaint: Orthopedic AUTUMN: 4 Review of Systems All systems reviewed & are unremarkable except as noted in HPI and below Cardiovascular Cardiovascular: Denies dyspnea Respiratory Respiratory: Denies cough, Reports pain with cough and Denies dyspnea Musculoskeletal Musculoskeletal: Reports as per HPI Exam Narrative Exam Narrative: Constitutional: Alert and oriented x3. Appears stated age. Normal body habitus. Head: Normocephalic, no trauma. Eyes: Pupils PERRL, Red reflex noted, EOM's intact. Eyelids symmetrical without lesions, discharge, or swelling. Does have healing bruises noted around the eyes and nose ENT: Bilateral TM's WNL, External ear normal to inspection, no mastoid TTP, swelling, or erythema, Nasal turbinates WNL, no nasal discharge. Normal dentition, Posterior pharynx WNL, no exudate. Chest: RRR, Normal S1, S2, distal pulses intact. No bruising noted no contusions. Lungs are clear to auscultation bilaterally. Resp: Lungs clear to auscultation bilaterally, no wheezes, rales, or rhonchi. Abdomen: Soft, non-distended, Normoactive bowel sounds all 4 quads. Musculoskeletal: Normal gait, Moves all 4 extremities without difficulty. Skin: No suspicious rashes or lesions. Capillary refill less than 2 sec. Neurologic: Cranial nerves II-XII intact. Alert and oriented x 3. Motor: No deficits noted. Sensory: Intact bilaterally all 4 extremities. Hematologic/Lymphatic: No ecchymosis, no lymphadenopathy. Course Vital Signs Vital signs: Vital Signs Pulse 66 04/15/25 12:05 Respiratory Rate 16 04/15/25 12:05 Blood Pressure 180/90 H 04/15/25 12:05 Pulse Oximetry 98 04/15/25 12:05 Pulse 66 04/15/25 12:05 Respiratory Rate 16 04/15/25 12:05 Blood Pressure 180/90 H 04/15/25 12:05 Blood Pressure Position Sitting 04/15/25 12:05 Pulse Oximetry 98 04/15/25 12:05 Oxygen Delivery Method Room Air 04/15/25 12:05 Oxygen Flow Rate 0 04/15/25 12:05 Pain Level 8 04/15/25 12:05 Medical Decision Making 79-year-old female presents to the ER with a chief complaint of right sided rib pain after falling out of bed few days ago. She denies any shortness of breath or productive cough, she did hit the bridge of her nose and has some healing bruising noted to the bridge of her nose and underneath her eyes. Denies any loss of consciousness denies any neck or back pain. She describes the pain to her right lateral rib cage that radiates into her right arm and mid chest. X-ray right rib series ordered. X-ray shows no acute pulmonary findings, no evidence of right rib fracture. There is noted some degenerative changes in the shoulder. Will place a lidocaine patch on for patient comfort and instruct on home care and follow-up care. This text was generated using [employer] system, please disregard any oddities of phrase or misspellings. PFSH All Active Problems (Updated 04/15/25 @ 13:58 by Susana Macias NP) Closed head injury without concussion (Acute) Chest wall contusion (Acute) Fall (Acute) Pancreatic cyst (Acute) Cholelithiasis (Acute) Fatigue (Acute) Elevated liver function tests (Acute) Medical History Thoracic aortic aneurysm without rupture IBS (irritable bowel syndrome) Hypertension Hyperlipidemia Diverticulosis of colon Anxiety Pancreatic mass Family hx of colon cancer Headache History of IBS COPD (chronic obstructive pulmonary disease) Hypothyroidism Insomnia Heartburn Major depression in remission BMI 38.0-38.9,adult Allergic rhinitis Postnasal drip Lower leg edema Asymptomatic postmenopausal status Vertigo History of neck pain Smoker Leg weakness Social History Smoking/Tobacco Use Status: Former Tobacco Use Quit Date: 05/23/24 Smoking risk assessment performed?: Yes Alcohol Intake: former Drug use: Never Substance use type: does not use Housing: house Current gender identity: female Do you feel safe at home: Yes Do you feel safe in your relationship?: Yes
[2025-04-15] MEDS: Lidocaine 5% Patch 1 PATCH TP (14:02)
[2025-04-15 14:14] VITALS: BP 190/91; PULSE 69; O2SAT 94
== END 2025-04-15 14:17 | disposition home or self-care (01) ==
PROVIDERS: Emergency Provider Registered Nurse Emergency; PCP Physician Assistant
DX: S09.8XXA Other specified injuries of head, initial encounter (principal); S20.211A Contusion of right front wall of thorax, initial encounter; W06.XXXA Fall from bed, initial encounter
CPT/HCPCS: 99283; 71046; 71100